=== PATIENT | female | born 1945 | race Caucasian/White ===

== ENCOUNTER → 2020-10-06 12:54 | Outpatient (BNVA) | payer MEDICARE, SELFPAY | PROVIDERS: PCP Internal Medicine; Visit Provider Hospitalist | DX: J45.909 Unspecified asthma, uncomplicated (principal); J98.4 Other disorders of lung; J31.0 Chronic rhinitis | CPT/HCPCS: 99212 ==

== ENCOUNTER → 2021-05-11 11:12 | Outpatient (BNVA) | payer MEDICARE, SELFPAY | PROVIDERS: PCP Internal Medicine; Visit Provider Hospitalist | DX: J98.4 Other disorders of lung (principal); J31.0 Chronic rhinitis; J45.40 Moderate persistent asthma, uncomplicated | CPT/HCPCS: 99212 ==

== ENCOUNTER 2022-03-03 13:01 | Outpatient (REF) | payer MEDICARE, SELFPAY ==
--- NOTE | 2022-03-03 16:34 | PFT_ITS ---
Forced vital capacity 78%, slightly decreased. FEV1 83%, FEV1/FVC ratio is 80, and FEF 25-75 96%, MVV 93%, all normal. Post-bronchodilator therapy, there is no significant change. Total lung capacity 69%. Residual volume is 57%. Diffusion capacity 77%. CONCLUSION: Mild restrictive pulmonary disorder. No evidence of obstructive airway disorder. Clinical correlation is recommended. MD CLARICE Daley/MODL / [id number]
== END 2022-03-03 13:02 | disposition home or self-care (01) ==
LOC: HO.RESP 13:01
PROVIDERS: PCP Internal Medicine; Visit Provider Hospitalist
DX: J98.4 Other disorders of lung (principal)
CPT/HCPCS: 94060; 94727; 94729

== ENCOUNTER 2022-03-08 10:46 | Outpatient (REF) | payer MEDICARE, SELFPAY ==
--- NOTE | ~2022-03-08 | XR_ITS ---
EXAMINATION: XR CHEST CLINICAL INFORMATION: Lung disorder. COMPARISON: 06/04/2020 TECHNIQUE: 2 views of the chest were obtained. FINDINGS: The cardiopericardial silhouette is enlarged. There is some bronchial wall thickening identified. There appears to be some mild prominence of the azygos vein. No confluent parenchymal disease is appreciated. No pneumothorax or pleural effusion. There is scoliosis of the superior thoracic spine, convex left. Patient is status post previous left shoulder arthroplasty. XR/XR chest 2V IMPRESSION: Cardiomegaly with findings consistent with pulmonary vascular congestion without clarice airspace edema.
== END 2022-03-08 10:47 | disposition home or self-care (01) ==
LOC: HO.XRAY 10:46
PROVIDERS: PCP Internal Medicine; Visit Provider Hospitalist
DX: J98.4 Other disorders of lung (principal); J31.0 Chronic rhinitis; J45.40 Moderate persistent asthma, uncomplicated
CPT/HCPCS: 71046; 99212

== ENCOUNTER → 2022-09-07 09:58 | Outpatient (BNVA) | payer MEDICARE, SELFPAY | PROVIDERS: PCP Internal Medicine; Visit Provider Hospitalist | DX: J45.40 Moderate persistent asthma, uncomplicated (principal); J31.0 Chronic rhinitis; J98.4 Other disorders of lung; I48.92 Unspecified atrial flutter | CPT/HCPCS: 99212 ==

== ENCOUNTER 2023-02-15 10:04 | Outpatient (REF) | payer MEDICARE, SELFPAY ==
--- NOTE | ~2023-02-15 | XR_ITS ---
EXAMINATION: XR CHEST CLINICAL INFORMATION: J45.40 - Moderate persistent asthma, uncomplicated COMPARISON: Chest radiographs 03/08/2022, 06/04/2020 TECHNIQUE: 2 views of the chest were obtained. FINDINGS: No hyperinflation. No airspace consolidation or groundglass opacity or effusion. The costophrenic sulci are clear. Heart size within normal. Vascularity normal. The hilar and mediastinal contours and bony structures are similar to prior exam. Prior left shoulder prosthesis. Multilevel degenerative changes thoracic spine. XR/XR chest 2V IMPRESSION: No acute intrathoracic disease.
== END 2023-02-15 10:05 | disposition home or self-care (01) ==
LOC: HO.XRAY 10:04
PROVIDERS: Visit Provider Hospitalist
DX: J45.40 Moderate persistent asthma, uncomplicated (principal); J31.0 Chronic rhinitis; J98.4 Other disorders of lung
CPT/HCPCS: 71046; 99212

== ENCOUNTER 2023-11-21 13:57 | Outpatient (REF) | payer MEDICARE, SELFPAY ==
--- NOTE | ~2023-11-21 | XR_ITS ---
EXAMINATION: XR HIP, LEFT CLINICAL INFORMATION: Left hip osteoarthritis. COMPARISON: None available. TECHNIQUE: AP and frog-leg lateral views of the left hip are submitted, together with frontal views of the pelvis. FINDINGS: There is bony demineralization. The bilateral acetabular joint spaces are symmetric and well-maintained. There is mild subchondral sclerosis and peripheral osteophyte formation of the acetabular roofs. The femoral heads are smooth. There is no fracture or dislocation. There are large calcified pelvic fibroids. There are pelvic phleboliths. There are incompletely characterized degenerative changes of the lumbar spine. XR/XR hip LT w PEL1V IMPRESSION: 1. There is mild osteoarthritic change of the bilateral hips. No fracture or dislocation is seen. 2. There are large calcified pelvic fibroids, which may be more fully evaluated with dedicated pelvic ultrasound, if clinically indicated.
== END 2023-11-21 13:58 | disposition home or self-care (01) ==
LOC: HO.XRAY 13:57
PROVIDERS: PCP Internal Medicine; Visit Provider Physical Medicine & Rehabilitation
DX: M16.12 Unilateral primary osteoarthritis, left hip (principal)
CPT/HCPCS: 73502

== ENCOUNTER 2023-11-26 00:11 | Emergency (ER) | payer MEDICARE, SELFPAY ==
--- NOTE | ~2023-11-26 | XR_ITS ---
EXAMINATION: XR HAND, RIGHT CLINICAL INFORMATION: Injury COMPARISON: None available. TECHNIQUE: PA, lateral, and oblique views of the right hand. FINDINGS: There is suboptimal assessment on the lateral view due to patient positioning and overlapping structures. There is severe degenerative change at the basal joint of the thumb and adjacent carpal bones with joint space narrowing and prominent osteophyte formation. There is also joint space narrowing throughout the metacarpophalangeal joints, most severe at the thumb with joint space narrowing and spurring. There are extensive degenerative changes at the interphalangeal joints of the digits with joint space narrowing and osteophyte formation. There is suspected soft tissue swelling along the ulnar aspect of the proximal fifth digit and around the MCP joint. There is questionable subtle cortical irregularity at the neck of the fifth metacarpal for which a nondisplaced fracture cannot be excluded if there is a history of trauma. XR/XR hand RT min 3V IMPRESSION: 1. Questionable subtle cortical irregularity at the neck of the fifth metacarpal for which a nondisplaced fracture cannot be excluded if there is a history of trauma. Adjacent soft tissue swelling suspected. 2. Extensive degenerative changes throughout the hand and wrist.
[2023-11-26 00:30] VITALS: BP 195/65; PULSE 80; RESP 18; TEMP 36.7; O2SAT 93; BMI 34.4
[2023-11-26 02:00] VITALS: RESP 16
--- NOTE | 2023-11-26 02:10 | ED_ITS ---
HPI - General Adult General Chief complaint: Wound/Laceration Stated complaint: fall @ home, R hand laceration Time Seen by Provider: 11/26/23 02:09 Source: patient and family (patient's ) Mode of arrival: ambulatory Limitations: no limitations History of Present Illness HPI narrative: Patient is a 78 year old assigned female at with a history of atrial flutter, on Xarelto, presenting to the emergency department today with a right hand laceration. Patient states that she was walking with a glass when she tripped and fell, hitting her right hand on the ground and smashed the glass, causing a laceration. Patient denies hitting her head or any loss of consciousness. Patient denies any dizziness, lightheadedness, abdominal pain, nausea, vomiting, fever, chills, blurry vision, double vision, loss of vision, chest pain, difficulty breathing, shortness of breath, back pain, night sweats, pain with urination, increased urinary frequency, increased urinary urgency, blood in her urine or stool, syncope or a near syncopal episode, bowel incontinence, bladder incontinence, bowel retention, bladder retention, or any other complaints at this time. Onset (ago): minute(s) Location: right and upper extremity Radiation: non-radiation Severity: mild Severity scale (1-10): 3 Relieving factors: none Exacerbating factors: none Associated symptoms: denies other symptoms Treatments prior to arrival: none Related Data Home Medications Medication Instructions Recorded Confirmed atenolol 50 mg tablet mg PO 10/06/20 10/06/20 atorvastatin 40 mg tablet mg PO 10/06/20 10/06/20 flu vacc [id number](65yr up)-PF 240 ml IM ONCE 10/06/20 10/06/20 mcg/0.7 mL intramuscular syringe hydrochlorothiazide 25 mg tablet 25 mg PO DAILY 10/06/20 10/06/20 losartan 100 mg tablet 100 mg PO DAILY 10/06/20 10/06/20 anastrozole 1 mg tablet 1 mg PO DAILY 05/11/21 fluticasone propionate 115 2 puff inhalation BID 05/11/21 mcg-salmeterol 21 mcg/actuation HFA inhaler rivaroxaban 20 mg tablet (Xarelto) 20 mg PO DAILY 03/08/22 Previous Rx's Medication Instructions Recorded albuterol sulfate 90 mcg/actuation 2 inh inhalation Q6H PRN shortness 02/15/23 aerosol inhaler of breath or wheezing 30 days #18 grams azithromycin 500 mg tablet 500 mg PO DAILY 5 days #5 tabs 02/15/23 methylprednisolone 4 mg tablets in See Rx Instructions PO PER PKG DIR 02/15/23 a dose pack (Medrol (Filemon)) 6 days #21 ea montelukast 10 mg tablet 10 mg PO DAILY #90 tabs 07/17/23 cefuroxime axetil 250 mg tablet 250 mg PO BID 7 days #14 tabs 11/26/23 Allergies Allergy/AdvReac Type Severity Reaction Status Date / Time acetaminophen [Percocet] Allergy Severe Nausea and Verified 02/15/23 11:29 Vomiting celecoxib [Celebrex] Allergy Severe Swollen Verified 02/15/23 11:29 doxycycline Allergy Severe Rash Verified 02/15/23 11:29 oxycodone [Percocet] Allergy Severe Nausea and Verified 02/15/23 11:29 Vomiting Clindamycin HCl Allergy Severe Face Uncoded 02/15/23 11:29 Swollen Sulfa Drugs Allergy Severe Face Uncoded 02/15/23 11:29 Swollen Review of Systems 2 Constitutional: Constitutional: Reports no additional constitutional complaints, Denies chills, Denies fever(s) and Denies night sweats Eyes: Eyes: Reports no additional eye complaints, Denies blurry vision, Denies change in vision, Denies diplopia, Denies eye discharge, Denies loss of vision and Denies eye pain ENT: Denies dizziness Cardiovascular: Cardiovascular: Reports no additional cardiovascular complaints, Denies chest pain, Denies lightheadedness, Denies Loss of Consciousness and Denies dyspnea Respiratory: Respiratory: Reports no additional respiratory complaints and Denies dyspnea Gastrointestinal: Gastrointestinal: Reports no additional gastrointestinal complaints, Denies abdominal pain, Denies melena, Denies hematochezia, Denies change in bowel habits and Denies change in stool character Genitourinary: Genitourinary: Denies hematuria, Denies urinary frequency, Denies dysuria, Denies urinary incontinence, Denies urinary hesitancy and Denies urinary urgency Musculoskeletal: Musculoskeletal: Reports no additional musculoskeletal complaints, Denies numbness and Denies tingling Integumentary/Breasts: Comments: laceration to right hand Neurologic: Denies dizziness, Denies loss of vision, Denies numbness and Denies tingling Psychiatric: Psychiatric: Reports no additional psychiatric complaints Endocrine: Endocrine: Reports no additional endocrine complaints Hematologic/Lymphatic: Hematologic/Lymphatic: Reports no additional hematologic/lymphatic complaints Allergic/Immunologic: Allergic/Immunologic: Reports no additional allergic/immunologic complaints PMFSH Past Medical History Attestation statement: The following information was validated with the patient. (all information validated with the patient's ) Source: old records reviewed, obtained from family (patient's provided additional history and confirmed the history provided by the patient.) and nursing notes reviewed Medical History Atrial flutter Chronic rhinitis Chronic restrictive lung disease Asthma Social History Social History Alcohol intake: current Alcohol intake frequency: holidays/special occasions only Smoked in Last 30 Days: No Use of substances other than those prescribed or required for medical reasons: No Advance Directives: No Advance Directives Information Provided: No Physical Exam ED Vital Signs: Vital Signs - 24 hr 11/26/23 00:30 11/26/23 02:00 11/26/23 04:00 Temperature 98.0 F Pulse Rate 80 71 Respiratory Rate 18 16 16 Blood Pressure 195/65 H 153/56 H Pulse Oximetry 93 98 Oxygen Delivery Method Room Air Room Air BMI result Body Mass Index 34.4 Const General: cooperative, no acute distress, alert and awake Nutritional Appearance: well nourished Orientation/consciousness: patient oriented x3 Limitations: no limitations [facility] Head: Yes normal to inspection and Yes atraumatic Ears: hearing grossly normal bilaterally and external ears normal General nose exam: Normal external nose present, no nasal discharge noted and no epistaxis Face and sinus: Yes normal facial exam, No abrasion and No laceration Mouth: Normal oral and palatal mucosa present, no drooling and no muffled voice Eyes General: appearance normal, both eyes and all related structures Periorbital: periorbital findings normal Eyelids: Yes eyelids normal Conjunctivae: conjunctivae normal Pupils: Equal, round and reactive pupils present EOM: EOMs intact bilaterally Neck Neck: Yes normal visual inspection, Yes full ROM and Yes no lymphadenopathy Chest Chest palpation & inspection: normal inspection of the chest Resp Effort & Inspection: normal respiratory effort and able to speak in complete sentences GI Inspection: Yes normal to inspection Neuro General: patient oriented x3 and moves all extremities Cranial nerves: Yes Equal, round and reactive pupils present Cognition (Neuro): normal cognition Motor exam (neuro): 5/5 motor strength present throughout Sensory Exam: Normal double simultaneous stimulation for sensation Coordination: [id number] test normal Extrem General: Yes full ROM and Yes capillary refill normal Hand/finger images: 2 1. 2 x 2 x 2 rectangular flap laceration Psych Appearance: grossly normal Mental Status: mental status grossly normal Affect: normal affect Attitude: cooperative Thought process: Normal thought process present Thought content: Normal thought content present Insight: Good insight present (Psych) Medications Administered Discontinued Medications Generic Name Dose Route Start Last Admin Trade Name Freq PRN Reason Stop Dose Admin Diphtheria/Tetanus/Acell Pertussis 0.5 ml 11/26/23 03:13 11/26/23 03:42 Diphth,Pertus(Acell),Tet Adult 0.5 Ml Syringe IM 11/26/23 03:14 0.5 ml .ONCE ONE Administration Piperacillin Sod/Tazobactam 50 mls @ 100 mls/hr 11/26/23 02:18 11/26/23 03:42 Sod 3.375 gm/ Sodium Chloride IV 11/26/23 02:47 Infused ONCE ONE Infusion Lidocaine HCl 10 ml 11/26/23 02:16 11/26/23 03:11 Lidocaine Hcl 1 % Mpf 5 Ml Vial SUBCUT 11/26/23 02:17 10 ml ONCE ONE Administration Procedures Laceration Laceration 1: Site: hand Side (If applicable): right Description: flap (2 x 2 x 2 rectangular shape) Depth: simple, single layer Local Anesthetic: lidocaine 1% Amount of anesthesia used (mL): 5 Pre-repair: wound explored, irrigated extensively and deep structures intact Skin layer closed with: other (prolene) Size (cm): 5-0 Number of sutures: 9 Technique: simple, interrupted Orthopedic Splinting/Casting Injury #1: Side: right Upper Extremity Injury Location: hand Upper Extremity Immobilizer: sling/shoulder immobilizer and ulnar gutter Medical Decision Making Medical Decision Making MDM Narrative: Patient is a 78 year old assigned female at with a history of atrial flutter, on Xarelto, presenting to the emergency department today with a right hand laceration. Patient's physical exam was as noted in the physical exam portion of this note. Patient's blood work was unremarkable. Patient's right hand x-ray showed a possible right 5th metacarpal neck fracture. Given the patient's mechanism of injury, will treat as though it is a fracture. I spoke to the orthopedic team who agreed with repairing the laceration, splinting the hand, giving 1 dose of IV ABX, and having her follow up in the office. I explained my physical exam findings as well as all test results to the patient and the patient's . I answered all questions asked by the patient and the patient's . Patient's laceration was repaired, per procedure note, without incident. Patient's PMS was intact prior to and after repair. Patient's laceration was appropriately dressed and then an ulnar gutter splint was applied. Patient's PMS was intact prior to and after splint placement. Patient was given a sling to use while walking / standing. I stressed the importance of the patient taking her medication as prescribed. I stressed the importance of the patient following up with her primary care provider and an orthopedic provider. I stressed to the patient that if she were to have any numbness, tingling, or color change in her fingers to immediately loosen the YENNY wrap on her splint and if she found herself loosening all the YENNY wraps to the point where she sees ortho-glass, she should immediately return to the ER. I stressed the importance of the patient having the sutures removed in 7-10 days. I stressed the importance of the patient not getting the splint wet. I stressed the importance of the patient taking her ABX as prescribed. I stressed the importance of the patient returning to the emergency department immediately if her symptoms were to worsen or if she were to develop any dizziness, shortness of breath, difficulty breathing, chest pain, blurry vision, loss of vision, nausea, vomiting, abdominal pain, fever, chills, back pain, or any other complaints. Patient and the patient's verbalized agreement and understanding with this treatment plan and discharge. Differential Diagnosis Differential Diagnoses: The differential diagnosis associated with the presentation includes Hand laceration Hand fracture Fall Admission/Observation Consideration of admission/observation: Escalation of care including admission/observation considered Patient would have been admitted to the hospital had her work up had any findings where hospital admission was appropriate and her clinical presentation warranted hospital admission. Consult Healthcare Provider Management of the patient was discussed with: Facility Maintenance Helper (spoke with the orthopedic team as noted in the MDM Rationale portion of this note.) Lab Data [facility] Lab Attestation statement: I reviewed the patient's lab results. My interpretation of these results are in the MDM Rationale portion of this note. 11/26/23 03:04 11/26/23 03:04 Labs: Lab Results 11/26/23 Range/Units 03:04 WBC 7.9 (4.8-10.8) X10*3/uL RBC 4.30 (4.20-5.50) X10*6/uL Hgb 13.3 (12.0-16.0) g/dl Hct 40.5 (37.0-47.0) % MCV 94.2 (80.0-98.0) fL MCH 30.9 (27.0-33.0) pg MCHC 32.8 (31.0-35.0) g/dl RDW 12.7 (11.0-16.0) % Plt Count 221 (160-400) X10*3/uL MPV 9.6 (9.4-12.3) fL Immature Gran % (Auto) 0.3 (0.0-0.4) % Neut % (Auto) 62.9 (45-73) % Lymph % (Auto) 25.3 (20-40) % Pickett % (Auto) 8.6 (2-11) % Eos % (Auto) 2.1 (0-4) % Baso % (Auto) 0.8 (0-2) % Lymph # (Auto) 2.0 (1.2-4.9) X10*3/uL Pickett # (Auto) 0.7 (0.1-1.2) X10*3/uL Eos # (Auto) 0.2 (0.0-0.4) X10*3/uL Baso # (Auto) 0.1 (0.0-0.2) X10*3/uL Abs Immat Gran (auto) 0.02 (0.00-0.03) X10*3/uL Absolute Neuts (auto) 5.0 (2.0-8.3) x10*3/uL Absolute Nucleated RBC 0.000 (0.0-0.012) X10*3/uL Nucleated RBC % (auto) 0.0 (0.0-0.2) /100WBC PT 23.6 H (11.1-13.3) SEC INR 1.9 H (0.9-1.1) APTT 45.1 H (26.0-36.8) SEC Sodium 144 (135-145) mmol/L Potassium 4.0 (3.3-5.1) mmol/L Chloride 105 (96-108) mmol/L Carbon Dioxide 32 H (22-29) mmol/L Anion Gap 11 L (12-20) BUN 16 (9-16) mg/dL Creatinine 0.81 (0.5-1.4) mg/dL Estim Creat Clear Calc 56.7 Estimated GFR > 60 Random Glucose 97 (60-115) mg/dL Lactic Acid 1.1 (0.5-2.0) mmol/L Calcium 9.7 (8.4-10.2) mg/dL Magnesium 1.8 (1.6-2.6) mg/dL Total Bilirubin 0.3 (0.0-1.0) mg/dL AST 17 (5-31) U/L ALT 16 (0-31) U/L Alkaline Phosphatase 73 (39-117) U/L Total Protein 7.1 (6.5-8.0) g/dL Albumin 4.0 (3.5-5.0) g/dL Independent Interpretation I performed an independent interpretation of an: Plain X-Ray Interpretation: My interpretation is in agreement with the radiologist's impression of this imaging study. - EXAMINATION: XR HAND, RIGHT CLINICAL INFORMATION: Injury COMPARISON: None available. TECHNIQUE: PA, lateral, and oblique views of the right hand. FINDINGS: There is suboptimal assessment on the lateral view due to patient positioning and overlapping structures. There is severe degenerative change at the basal joint of the thumb and adjacent carpal bones with joint space narrowing and prominent osteophyte formation. There is also joint space narrowing throughout the metacarpophalangeal joints, most severe at the thumb with joint space narrowing and spurring. There are extensive degenerative changes at the interphalangeal joints of the digits with joint space narrowing and osteophyte formation. There is suspected soft tissue swelling along the ulnar aspect of the proximal fifth digit and around the MCP joint. There is questionable subtle cortical irregularity at the neck of the fifth metacarpal for which a nondisplaced fracture cannot be excluded if there is a history of trauma. XR/XR hand RT min 3V IMPRESSION: 1. Questionable subtle cortical irregularity at the neck of the fifth metacarpal for which a nondisplaced fracture cannot be excluded if there is a history of trauma. Adjacent soft tissue swelling suspected. 2. Extensive degenerative changes throughout the hand and wrist. Dictated By: Kyle Crisostomo MD Signed By: Electronically signed by Kyle Crisostomo MD 11/26/23 0135 Radiology Impression Discussion of test interpretation with radiology: I have reviewed the radiologist's reading. Independent Historian Clinical information obtained from an independent historian. History obtained from or confirmed by: Spouse (patient's provided additional history and confirmed the history provided by the patient.) Prescription Management I considered prescription management with: Antibiotic (patient prescribed an antibiotic) Critical Care Time Critical Care Time Critical Care Time: Yes Total Critical Care Time: 55 Attestation: I spent 55 minutes of Critical Care Time with this patient. This does not include time spent on separately reported billable procedures. Discharge Plan Discharge Clinical Impression: Hand laceration, Fracture of hand Patient Disposition: Home, Self-Care Instructions: Care For Your Stitches (DC), Laceration (DC), Hand Fracture (ED) Additional Instructions: Your sutures are to be removed in 7-10 days. You are to keep your splint on at all times. If you feel your fingers begin to tingle, go numb, or change color - immediately loosen the YENNY wraps around your splint. If you find yourself loosening your YENNY wraps to the point where you get down to the fiber glass, come back to the ER immediately. Do NOT get the splint wet. Follow up with your primary care provider and an orthopedic provider. Take your antibiotic as prescribed. Return to the emergency department immediately if your symptoms worsen or if you develop any dizziness, shortness of breath, difficulty breathing, chest pain, blurry vision, loss of vision, nausea, vomiting, abdominal pain, fever, chills, back pain, or any other complaints. Prescriptions: New cefuroxime axetil 250 mg tablet 250 mg PO BID 7 Days Qty: 14 0RF No Action montelukast 10 mg tablet 10 mg PO DAILY Qty: 90 3RF atenolol 50 mg tablet PO losartan 100 mg tablet 100 mg PO DAILY hydrochlorothiazide 25 mg tablet 25 mg PO DAILY atorvastatin 40 mg tablet PO Fluzone HighDose Quad 20-21 PF 240 mcg/0.7 mL syringe IM ONCE fluticasone propion-salmeterol 115-21 mcg/actuation HFA aerosol inhaler 2 puff inhalation BID anastrozole 1 mg tablet 1 mg PO DAILY azithromycin 500 mg tablet 500 mg PO DAILY 5 Days Qty: 5 0RF methylprednisolone [Medrol (Filemon)] 4 mg tablets,dose pack See Rx Instructions PO PER PKG DIR 6 Days Qty: 21 0RF Rx Instructions: PO PER PKG DIR albuterol sulfate 90 mcg/actuation HFA aerosol inhaler 2 inh inhalation Q6H PRN (Reason: shortness of breath or wheezing) 30 Days Qty: 18 12RF Xarelto 20 mg tablet 20 mg PO DAILY Referrals: [facility] [Provider Group] (Call to establish and follow up with an orthopedic provider. ) Murphy Ramirez MD [Primary Care Provider] - Interventions: ED Discharge Assessment Last Done: 11/26/23 03:56 Discharge Date/Time: 11/26/23 03:56 Print Language: [place]
[2023-11-26] MEDS: Piperacillin Sodium/Tazobactam 3.375 GM in 0.9 % Sodium Chloride 50 ML IV (03:10)
[2023-11-26] MEDS: Lidocaine HCl 1 % MPF 5 ML VIAL 10 ML SUBCUT (03:11)
[2023-11-26 03:12] LABS: MANUAL DIFF FLAG NO
[2023-11-26 03:13] LABS: Basophils Absolute Auto 0.1 X10*3/uL (0.0-0.2); Basophils Percent Auto 0.8 % (0-2); Eosinophils Absolute Auto 0.2 X10*3/uL (0.0-0.4); Eosinophils Percent Auto 2.1 % (0-4); Hematocrit 40.5 % (37.0-47.0); Hemoglobin 13.3 g/dl (12.0-16.0); Imm Gran Abs Auto 0.02 X10*3/uL (0.00-0.03); Imm Gran Pct Auto 0.3 % (0.0-0.4); Lymphocytes Percent Auto 25.3 % (20-40); Mean Corpuscular HGB Conc 32.8 g/dl (31.0-35.0); Mean Corpuscular Hemoglobin 30.9 pg (27.0-33.0); Mean Corpuscular Volume 94.2 fL (80.0-98.0); Mean Platelet Volume 9.6 fL (9.4-12.3); Monocytes Absolute Auto 0.7 X10*3/uL (0.1-1.2); Monocytes Percent Auto 8.6 % (2-11); Neutrophils Percent Auto 62.9 % (45-73); Platelet Count 221 X10*3/uL (160-400); Red Cell Distribution Width 12.7 % (11.0-16.0); White Blood Count 7.9 X10*3/uL (4.8-10.8)
[2023-11-26 03:20] LABS: INTERNATIONAL NORM RATIO 1.9 (0.9-1.1); Prothrombin Time 23.6 SEC (11.1-13.3)
[2023-11-26 03:22] LABS: Partial Thromboplastin Time 45.1 SEC (26.0-36.8)
[2023-11-26 03:23] LABS: Lactic Acid 1.1 mmol/L (0.5-2.0)
[2023-11-26 03:26] LABS: Alanine Aminotransferase 16 U/L (0-31); Alkaline Phosphatase 73 U/L (39-117); Anion Gap 11 (12-20); Aspartate Amino Transferase 17 U/L (5-31); Bilirubin Total 0.3 mg/dL (0.0-1.0); Blood Urea Nitrogen 16 mg/dL (9-16); Calcium 9.7 mg/dL (8.4-10.2); Carbon Dioxide 32 mmol/L (22-29); Chloride 105 mmol/L (96-108); Creatinine Clr Calc Pharmacy 56.7; Estimated Glomerular Filt Rate > 60; Glucose Random 97 mg/dL (60-115); Magnesium 1.8 mg/dL (1.6-2.6); Sodium 144 mmol/L (135-145); Total Protein 7.1 g/dL (6.5-8.0)
[2023-11-26] MEDS: Diphth,Pertus(ACell),Tet Adult 0.5 ML SYRINGE IM (03:42)
[2023-11-26 04:00] VITALS: BP 153/56; PULSE 71; RESP 16; O2SAT 98
== END 2023-11-26 03:56 | disposition home or self-care (01) ==
PROVIDERS: Physician Assistant Medical; Emergency Provider Emergency Medicine Emergency Medical Services; PCP Internal Medicine
DX: S62.91XA Unspecified fracture of right hand, initial encounter for closed fracture (principal); S61.411A Laceration without foreign body of right hand, initial encounter; S60.511A Abrasion of right hand, initial encounter; I48.92 Unspecified atrial flutter; W01.10XA Fall on same level from slipping, tripping and stumbling with subsequent striking against unspecified object, initial encounter; Y93.9 Activity, unspecified; Y92.9 Unspecified place or not applicable; Y99.9 Unspecified external cause status; Z79.01 Long term (current) use of anticoagulants; Z79.899 Other long term (current) drug therapy; Z23 Encounter for immunization
CPT/HCPCS: 12042; 29125; 36415; 73130; 80053; 83605; 83735; 85025; 85610; 85730; 87040; 90471; 90715; 96365; 99284; J2543

== ENCOUNTER 2024-08-27 10:29 | Outpatient (AMB) | payer MEDICARE, SELFPAY ==
--- NOTE | 2024-08-27 10:32 | A.OFFVIS_ITS ---
Vital Signs 08/27/24 10:38 Weight 178 lb 9.191 oz BP 136/80 Blood Pressure Location Rt brachial Position Sitting Pulse 81 Pulse Source Pulse Oximeter Pulse Oximetry (%) 95 Oxygen Delivery Method Room Air Intake Visit Reasons: COPD Intake Note: needs 30 day supply [facility]air to local [facility] Allergies acetaminophen [Percocet] Allergy (Severe, Verified 08/27/24 10:44) Nausea and Vomiting celecoxib [Celebrex] Allergy (Severe, Verified 08/27/24 10:44) Swollen doxycycline Allergy (Severe, Verified 08/27/24 10:44) Rash oxycodone [Percocet] Allergy (Severe, Verified 08/27/24 10:44) Nausea and Vomiting Clindamycin HCl Allergy (Severe, Uncoded 08/27/24 10:44) Face Swollen Sulfa Drugs Allergy (Severe, Uncoded 08/27/24 10:44) Face Swollen Medication List - Last Reconciled 08/27/24 by Aby Orantes LPN albuterol sulfate 90 mcg/actuation 2 inhalations inhalation Q6H PRN 30 days anastrozole 1 mg PO DAILY atenolol mg PO atorvastatin mg PO flu vacc [id number](65yr up)-PF mL IM ONCE fluticasone propion-salmeterol 115-21 mcg/actuation 2 puffs inhalation BID hydrochlorothiazide 25 mg PO DAILY losartan 100 mg PO DAILY montelukast 10 mg PO DAILY rivaroxaban (Xarelto) 20 mg PO DAILY HPI Comments Details: The patient is a 79-year-old woman with known allergic rhinitis and also allergic asthma. 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 More recently her allergies became more significant and with recent allergy testing she was switched over to allergy shots once a week. She has not been also using Zyrtec at nighttime. In regards to her asthma she appears to be pretty stable currently on Flovent. Prior to that she was on Breo. She does not use her rescue inhaler more than twice a week. She does clear her throat a lot moderate in amount with a number awake cough syndrome. The patient has never tried singular. I do believe this is a good option for her to try to try to mitigate some of the allergy symptoms. 06/04/2020 the patient is here for pulmonary follow-up visit. Overall she is doing about the same. She complains of intermittent hoarseness. She had a spacer has been helpful. She is down to 1 puff twice a day of the Advair HFA. She has not had to really use her rescue inhaler. At this time she will be going back to allergy shots. She is also taking her allergy medicine. Therefore I believe that she can go down to the Advair HFA 1 puff daily see if we can minim ize irritation to her throat. In the fall when her symptoms get worse the patient can be started the twice a day Advair. She should be rinsing with mouthwash better than water. In addition to that we did talk about her pulmonary function studies demonstrating a restrictive ventilatory defect. Therefore she should have a chest x-ray at this time. 10/06/2020 the patient is here for pulmonary follow-up visit. The patient is doing well. She did decrease the inhaler. Down to 1 puff daily in the morning. Her hoarseness did get better she overall she was doing well. However, Monday winter season started she started developing more chest tightness and shortness of breath. She did increase her Advair to 1 inhalation twice a day in now she used to be better. She continue using her allergy medicine. We again talked about her chest x-ray that she had back in some demonstrating some decreased lung volumes in with appears to be crowding of the parenchyma and vasculature. In addition to that we will see did look at her CT scan of the chest that she had many years ago she was intubated pneumonia. She had to be areas of ground-glass opacities in a bronchovascular distribution. 05/11/2021 the patient is here for pulmonary follow-up visit. Since we last spoke the patient has been complaining palpitations. Apparently she to take a course of prednisone due to worsening respiratory symptoms. Then after that the patient started the developing some increased ectopy. She was evaluated by physician noted that heart was irregular. Therefore she was sent for an evaluation [facility]. There she had an EKG with frequent PVCs. In addition to that she had an echocardiogram which was relatively normal except for some trivial tricuspid regurgitation during that workup the patient also a chest x- ray that was personally reviewed by me demonstrating a pronounced hilum otherwise no acute disease. She has PFTs demonstrating restrictive ventilatory defect. Explained to her that this is likely multifactorial. The patient has been doing well with the Advair. She has not required any additional prednisone and has not been using rescue inhaler before she is continue this medication 1 puff twice a day. The patient also had a Holter monitor and she does not have the results. She will follow-up cardiology once it is available for the patient will return in the spring in hoping that she could in the meantime working weight loss therefore we can repeat her pulmonary function studies and see if there is any significant improvement if she continues to be resected or if she to be symptomatic additional imaging studies will be warranted. Also to note the patient started developing left ear discomfort after her echocardiogram and main on her left ear down. She did follow-up with ENT. The recommended for to start a Medrol pack. She will consider starting it if she is no better. In the meantime I did recommend to try Afrin for 3-5 days to see if it improves prior to the Medrol. 03/08/2022 the patient is here for a pulmonary follow-up visit. Since we last spoke the patient was diagnosed with a atrial flutter. She did undergo cardioversion but was unsuccessful. She is following closely with Cardiology apparently value Cardiology. Now she has been referred to electrophysiology for potential ablation. She continues to have dyspnea on exertion. We did undergo repeat pulmonary function studies. Appears that her total lung capacity continues to be decreased consistent with restrictive lung disease. Her previous x-ray was not significant. I have her repeat an x-ray. If the x-ray is abnormal she is going to require additional imaging studies. If she continues to have dyspnea symptoms after her ablation or EP procedure then we can also consider additional diagnostic evaluation to further assess the restrictive lung disease that may also be contributing to her dyspnea symptoms. She continues on the Advair. It appears that is affecting beneficial. Is on likely precipitating any cardiac issues based on the small dose. 09/07/2022 the patient is here for a pulmonary follow-up visit. The patient overall has been feeling about the same. Complains of dyspnea on exertion. Moderate severity. Specially when going up a flight of stairs. We did review her last chest x-ray that she had in the office back in February demonstrating increased cardiac size with perihilar congestion cephalization suggesting some vascular distribution. She was supposed to undergo an ablation for her atrial fibrillation atrial flutter. However, the procedure has not been done as of yet. After much back in for the patient finally got a day for the ablation to be done in mid September. Therefore, will go ahead and have her follow-up with us in early spring with a chest x-ray after she recovers from her ablation see if any of those changes are still present. If her chest x-ray still abnormal then will consider getting a CT scan. Otherwise she will continue with current respiratory regimen. 02/15/2023 the patient is here for pulmonary follow-up visit. The patient overall is doing well. Now that the spring season is coming in she is having more allergies. She does good allergy therapies with her technical program manager locally. She gets allergy shots every 3 weeks and now we going for every 2 weeks. Recently she completed a Medrol pack and also completed a Z-Filemon. She also underwent an ablation for atrial flutter and appears to be working well. She was supposed to have a chest x-ray today but she has not had 1 as of yet. Her last chest x-ray from February 2022 that she had some vascular congestion. I am hopeful that now after the ablation or the procedure that she is doing better. The patient has been using her Advair with good effect. I will go ahead and give her additional medicines for her to take on her trip to [place]. She does have still a sore throat and some lymphadenopathy that is tender around the neck area. She has multiple allergies. Therefore I will give another Z-Filemon and Medrol in case she gets worse again. In the meantime the patient will continue with current respiratory medications will follow-up in the spring on as any new issues arise. When she has a chest x-ray done if there is any abnormalities I will request additional imaging studies. 08/27/2024 the patient is here for a pulmonary follow-up visit. The patient overall has been doing well. Several months ago the patient did have an episode of sinusitis again before going on a cruise and she did require a short course of azithromycin and a Medrol Filemon and that improved her symptoms after a week. She was able to enjoy her cruise. She is back to her baseline. Although she does have significant allergies and she needs to stay on the Singulair that does help her. She is also taking Advair HFA but she tries to minimize it 1 puff twice a day which is perfectly fine. She can always increase it if she has any worsening symptoms. When she came in today her blood pressure was elevated but most likely because she was rushing. We did recheck it again was okay. In addition to that her oxygen had been slightly on the low side so will have her get a chest x-ray. Her respiratory exam is reassuring. She does have a postnasal drip and will go ahead and treated with Atrovent nasal spray for that. She does not have any history of glaucoma. Therefore, she will have a chest x-ray whenever possible and she will continue with current respiratory therapy and will send the prescriptions to the pharmacy. The patient will follow-up in a year's time. If she has any issues prior to that she will call for an earlier assessment. REPLACED BY [facility] Medical History Atrial flutter Chronic rhinitis Chronic restrictive lung disease Asthma Social History Alcohol intake: current Alcohol intake frequency: holidays/special occasions only Review of Systems Const Denies night sweats ENT Denies change in voice, Denies lip swelling, Denies mouth pain, Reports nasal congestion, Reports nasal discharge, Reports post nasal drip and Denies tongue swelling Card Denies chest pain and Reports dyspnea on exertion Resp Denies chest congestion, Reports cough and Reports dyspnea on exertion GI Denies abdominal pain Musc Denies no additional complaints Neuro Denies Neuro-related abnormal movements Psych Denies no additional complaints Bossman/Lymph Denies easy bleeding and Denies lymphadenopathy Aller/Immun Denies lip swelling and Denies tongue swelling Physical Exam Vital Signs: Last Vital Signs Pulse 81 08/27/24 10:38 BP 136/80 08/27/24 10:38 Pulse Ox 95 08/27/24 10:38 Oxygen Delivery Method Room Air 08/27/24 10:38 Const General: alert Neck Neck: Yes normal visual inspection, Yes full ROM and Yes no lymphadenopathy Chest Chest palpation & inspection: normal inspection of the chest Resp Auscultation: diminished lung sounds Cardio Rate: tachycardic Rhythm: abnormal rhythm Heart sounds: S1 normal heart sound present and S2 normal heart sound present GI Palpation (GI): Soft to palpation and nontender Auscultation: normal bowel sounds Skin General skin exam: rashes and/or lesions noted Assessment & Plan Assessment & Plan (1) Chronic rhinitis: Code(s): J31.0 - Chronic rhinitis Category: Medical (2) Chronic restrictive lung disease: Comment: Based on PFTs Code(s): J98.4 - Other disorders of lung Category: Medical (3) Asthma: Code(s): J45.909 - Unspecified asthma, uncomplicated Category: Medical Qualifiers: Asthma complication type: uncomplicated Asthma persistence: persistent Asthma severity: moderate Qualified Code(s): J45.40 - Moderate persistent asthma, uncomplicated Plan continue fluticasone nasal spray atrovent nasal spray as needed continue Advair HFA continue singulair THOM as needed continue with allergy testing Repeat CXR F/U 8-12 months Orders: Orders XR chest 2V Today J98.4 - Other disorders of lung Medications: New ipratropium bromide administer into each nostril 2 sprays intranasal TID PRN 15 mL 6RF allergy symptoms Changed From montelukast 10 mg PO DAILY 30 tabs 0RF To montelukast 10 mg PO DAILY 90 tabs 3RF 90 days Refilled montelukast 10 mg PO DAILY 30 tabs 0RF Coding Level of Care Code Est Pt Level 4 (89131) Diagnoses Chronic rhinitis J31.0 Chronic restrictive lung disease J98.4 Moderate persistent asthma without complication J45.40 Asthma complication type: uncomplicated Asthma persistence: persistent Asthma severity: moderate Time Spent (min) 16
[2024-08-27 10:38] VITALS: BP 136/80; PULSE 81; O2SAT 95
== END 2024-08-27 11:07 | disposition home or self-care (01) ==
LOC: HO.HPS 10:29
PROVIDERS: PCP Internal Medicine; Visit Provider Hospitalist
DX: J31.0 Chronic rhinitis (principal); J98.4 Other disorders of lung; J45.40 Moderate persistent asthma, uncomplicated
CPT/HCPCS: 99214

== ENCOUNTER → 2024-08-27 10:29 | Outpatient (BNVA) | payer MEDICARE, SELFPAY | PROVIDERS: PCP Internal Medicine; Visit Provider Hospitalist | DX: J45.40 Moderate persistent asthma, uncomplicated (principal); J31.0 Chronic rhinitis; J98.4 Other disorders of lung | CPT/HCPCS: 99212 ==

== ENCOUNTER 2025-06-09 14:28 | Outpatient (AMB) | payer MEDICARE, SELFPAY ==
--- OUTSIDE RECORDS SUMMARY | 2025-06-09 15:11 | XMS_ITS | Clinical Summary ---
Author Organization [address] [place] [address] Address [address] [place] [address] Phone Care Team Providers Care Heel Dipper Name Role Phone Murphy Ramirez MD Primary Care Provider [phone] Allergies Active Allergy Reactions Criticality Noted Date Comments Celecoxib Angioedema High 01/06/2017 Clindamycin Angioedema High 01/06/2017 Doxycycline Angioedema High 01/06/2017 Other 02/23/2022 Runny nose, cough, allergic asthma Oxycodone-Acetaminophen Nausea And Vomiting Penicillins Rash 06/02/2021 Sulfa (Sulfonamide Antibiotics) Angioedema High 01/06/2017 Medications biotin 1 mg capsule Take 1 tablet by mouth 1 (one) time each day. Active fluticasone propion-salmeter oL (ADVAIR DISKUS) 100-50 mcg/dose diskus inhaler Inhale 1 puff by mouth every 12 (twelve) hours. Active losartan (COZAAR) 100 mg tablet Take 1 tablet (100 mg total) by mouth 1 (one) time each day. Active hydroCHLOROthiaz elaine (HYDRODIURIL) 25 mg tablet Take 1 tablet (25 mg total) by mouth 1 (one) time each day. Active calcium carbonate/vitami n D3 (CALCIUM + D ORAL) Take by mouth. 400mg Active ascorbic acid, vitamin C, 500 mg capsule Take by mouth. Acti ve anastrozole (ARIMIDEX) 1 mg Take 1 tablet (1 mg total) by mouth 1 (one) time each day Active magnesium oxide 500 mg magnesium tablet Take 1 tablet by mouth 1 (one) time each day. Active montelukast (SINGULAIR) 10 mg tablet Take 1 tablet (10 mg total) by mouth at bedtime. Active triamcinolone acetonide (NASACORT NASL) by Nasal route. Active atenoloL (TENORMIN) 50 mg tablet Take 1.5 tablets (75 mg total) by mouth 2 (two) times a day. Active atorvastatin (LIPITOR) 40 mg tablet Take 1 tablet (40 mg total) by mouth at bedtime. Active multivitamin/iro n/folic acid (CENTRUM ORAL) Take 1 tablet by mouth. Active omega-3 acid ethyl esters (LOVAZA) 1 gram capsule Take 1 capsule.old by mouth daily. Active omeprazole (PriLOSEC) [address] capsule Take 1 capsule (20 mg total) by mouth 1 (one) time each day. Active albuterol HFA (PROAIR HFA ; PROVENTIL HFA ; VENTOLIN HFA) 90 mcg/actuation inhaler Inhale 2 puffs by mouth every 4 (four) hours if needed. Active cetirizine (ZyrTEC) 10 mg tablet Take 1 tablet (10 mg total) by mouth 1 (one) time each day. Active amoxicillin (AMOXIL) 500 mg capsule Take 4 capsules (2,000 mg total) by mouth See administration instructions. 1 hour prior to dental appointment 05/21/20 24 Active ipratropium (ATROVENT) 42 mcg (0.06 %) nasal spray Administer 1 spray into each nostril 3 (three) times a day. 08/27/20 24 Active rivaroxaban (XARELTO) 20 mg tabletIndication s:Atrial flutter, unspecified type (CMS/HCC V24, CMS/HCC V28),Mild asthma, unspecified whether complicated, unspecified whether persistent,Brittney ture atrial contractions,Mix ed hyperlipidemia,P rimary hypertension Take 1 tablet (20 mg total) by mouth 1 (one) time each day. With meals 90 tablet 2 01/03/20 25 Active Active Problems Problem Noted Date Diagnosed Date Mild persistent asthma 12/29/2022 Atrial flutter (CMS/HCC V24, CMS/HCC V28) 2020 Overview (10/28/2024): Last Assessment & Plan: In atrial flutter, heart rate is on the high end of normal on BB, anticoagulated on Xarelto since October, she has not missed a single dose. We will go forth with a cardioversion. We reviewed this in depth and Dr. Riddle and also reviewed this at her last office visit. We will try cardioversion, we also reviewed other treatment options are rate control, antiarrhythmic therapy, or ablation. She understands risk and benefits of anticoagulation and wished to continue. Premature atrial contractions 06/03/2021 PVC's (premature ventricular contractions) 06/02 Hyperlipidemia 08/26/2017 Overview (10/28/2024): Last Assessment & Plan: Continue statin. Primary hypertension 08/26/2017 Overview (10/28/2024): Last Assessment & Plan: 134/88, she tells me she has been under some increased stress over the past week, her had a stent placed last week, and just received some bad news on her way here. Continue current regimen. Asthma 03/08/2017 Allergic rhinitis 01/06/2017 Encounters Date Type Department Care Team Description 03/28/2025 Telephone [facility] - [address] [place] [address] Mile Chow PA atenoloL (TENORMIN) 50 mg tablet refill (atenoloL (TENORMIN) 50 mg tablet refill) from Last 3 Months Surgical History Surgery Date Site/Laterality Comments TOTAL KNEE ARTHROPLASTY PROCEDURE: HISTORICAL TOTAL KNEE REPLACE OTHER SURGICAL HISTORY PROCEDURE: HISTORY OTHER; COMMENT: Hammer toe operation CARDIOVERSION DONE ON 01/13/2025 AT [facility] W CR INDICATIONS:Atrial flutter ABLATION DONE ON 01/27/2025 AT [facility] W SR INDICATIONS:Atrial flutter. Medical History Medical History Date Comments Hypertension 08/26/2017 DX:Hypertension Hyperlipidemia 08/26/2017 DX:Hyperlipidemi a Total knee replacement status 08/26/2017 DX :Total knee replacement status Atypical lobular hyperplasia of left breast 09/2017 DX:Atypical lobular hyperpla ever of left breast Chronic restrictive lung disease DX:Chronic restrictive lung disease Generalized osteoarthritis DX:Ge neralized osteoarthritis Metabolic syndrome X DX:Metaboli c syndrome X Obesity DX:Obesity Post-operative pain DX:Post-oper ative pain Allergic asthma without complication DX:Allergic asthma without complication Allergic rhinitis DX:Allergic rh initis Extrinsic allergic asthma DX:Ext rinsic allergic asthma Family History Medical History Relation Name Comments Lung cancer Father Stroke Mother Relation Name Status Comments Father Mother Social History Tobacco Use Types Packs/Day Years Used Date Smoking Tobacco: Never Smokeless Tobacco: Never Tobacco Cessation:Counseling Given: Not Answered Alcohol Use Standard Drinks/Week Comments Yes 0 (1 standard drink = 0.6 oz pur e alcohol) Comments Unknown Sex and Gender Information Value Date Recorded Sex Assigned at Female 01/10/2025 8:24 AM EDT Legal Sex Female 5:14 AM EST Gender Identity Female 01/10/2025 8:24 AM EDT Sexual Orientation Straight 01/10/2025 8: 24 AM EDT Obstetrics History Last Filed Vital Signs Vital Sign Reading Time Taken Comments Blood Pressure 130/60 02/19/2025 2:15 PM EDT Pulse 85 02/19/2025 2:15 PM EDT Temperature - - Respiratory Rate 17 01/13/2025 2:15 PM EDT Oxygen Saturation 95% 02/19/2025 2:15 PM EDT Inhaled Oxygen Concentration - - Weight 80.7 kg (178 lb) 02/19/2025 2:15 PM EDT Height 154.9 cm (5' 1 ) 02/19/2025 2:15 PM EDT Body Mass Index 33.63 02/19/2025 2:15 PM EDT Plan of Treatment Upcoming Encounters Date Type Department Care Team (Late st Contact Info) Description 06/12/2025 9:40 AM EDT Office Visit [facility] - [facility] [address] [place] [address] Mile Chow PA [address] [place] [address] Health Maintenance Due Date Last Done Comments Zoster Vaccines (2 of 2) 12/18/2013 014, 09/17/2011, 09/07/2011, Additional history exists Cholesterol Screening (Lipid Panel) 10/01/2022 Falls Risk Assessment 10/01/2022 Hepatitis C Screening 10/01/2022 Hypertension/CHF/CAD Annual BMP Blood Test 10/01/2022 Medicare Annual Wellness Visit 10/01/2022 Osteoporosis Screening (Bone Density Screening) 10/01/2022 Social Influencers of Health Screening 10/01/2022 Depression Screening 10/23/2024 COVID-19 Vaccine (8 - Pfizer risk season) 2025 07/05/2024, 08/11/2023, 07/11/2022, Additional history exists Influenza Vaccine (#1) 2025 , 07/07/2023, 07/11/2022, Additional history exists DTaP,Tdap,and Td Vaccines (4 - Td or Tdap) 11/26/2033 11/26/2023, 07/09/2016, 10/07/2011 Pneumococcal Vaccine: 50+ Years Completed 11/25/2021, 05/08/2015, 10/07/2011, Additional history exists RSV Immunization Adult Patients Completed 07/07/2023 HIB Vaccines Aged Out No longer eligi ble based on patient's age to complete this topic HPV Vaccines Aged Out No longer eligi ble based on patient's age to complete this topic Hepatitis A Vaccines Aged Out No long er eligible based on patient's age to complete this topic Hepatitis B Vaccines Aged Out No long er eligible based on patient's age to complete this topic IPV Vaccines Aged Out No longer eligi ble based on patient's age to complete this topic MMR Vaccines Aged Out No longer eligi ble based on patient's age to complete this topic Meningococcal ACWY Vaccine Aged Out N o longer eligible based on patient's age to complete this topic Meningococcal B Vaccine Aged Out No l onger eligible based on patient's age to complete this topic RSV Immunization Patients Under 20 months Aged Out No longer eligible based on patient's age to complete this topic Varicella Vaccines Aged Out No longer eligible based on patient's age to complete this topic Insurance MEDICARE [facility] Care Teams Heel Dipper Relationship Specialty Start Date End Date Murphy Ramirez MD [address] [email or web address] - General Internal Medicine 04/27/21
== END 2025-06-09 14:34 | disposition home or self-care (01) ==
LOC: HO.HMGAL 14:28
PROVIDERS: PCP Internal Medicine; Visit Provider Registered Nurse Emergency
DX: J30.89 Other allergic rhinitis (principal)
CPT/HCPCS: 95117; 95165

== ENCOUNTER 2025-06-25 14:28 | Outpatient (AMB) | payer MEDICARE, SELFPAY ==
--- OUTSIDE RECORDS SUMMARY | 2025-06-25 16:46 | XMS_ITS | Clinical Summary ---
Author Organization [address] [place] [address] Address [address] [place] [address] Phone Care Team Providers Care Tooth Inspector Name Role Phone Murphy Ramirez MD Primary Care Provider [phone] Allergies Active Allergy Reactions Criticality Noted Date [...] mg capsule Take by mouth. Acti ve magnesium oxide 500 mg magnesium tablet Take 1 tablet by mouth 1 (one) time each day. Active montelukast (SINGULAIR) 10 mg tablet Take 1 tablet (10 mg total) by mouth at bedtime. Active atenoloL (TENORMIN) 50 mg tablet Take 1 tablet (50 mg total) by mouth 2 (two) times [...] meals 90 tablet 2 01/03/20 25 Active anastrozole (ARIMIDEX) 1 mg Take 1 tablet (1 mg total) by mouth 1 (one) time each day 025 Discontin ued(Thera py completed ) triamcinolone acetonide (NASACORT NASL) by Nasal route. 05/24 10/24 025 Discontin ued(Thera py completed ) Active Problems Problem Noted Date Diagnosed Date [...] Encounters Date Type Department Care Team Description 06/12/2025 9:40 AM EDT Office Visit [facility] - [address] [place] [phone] Mile Chow PA PVC's (premature ventricular contractions) (Primary Dx); Typical atrial flutter (CMS/HCC V24, CMS/HCC V28); Primary hypertension; Hyperlipidemia, unspecified hyperlipidemia type 03/28/2025 Telephone [facility] - [address] [place] [phone] Mile Chow PA from Last 3 Months Surgical History Surgery Date Site/Laterality Comments TOTAL KNEE ARTHROPLASTY PROCEDURE: HISTORICAL TOTAL KNEE REPLACE OTHER SURGICAL HISTORY PROCEDURE: HISTORY OTHER; COMMENT: Hammer toe operation CARDIOVERSION DONE ON 01/13/2025 AT [facility] W CR INDICATIONS:Atrial flutter ABLATION DONE ON 01/27/2025 AT [facility] [place] W SR INDICATIONS:Atrial flutter. Medical History Medical [...] Sign Reading Time Taken Comments Blood Pressure 132/76 06/12/2025 10:00 AM EDT Pulse 64 06/12/2025 9:31 AM EDT Temperature - - Respiratory Rate 17 01/13/2025 2:15 PM EDT Oxygen Saturation 93% 06/12/2025 9:31 AM EDT Inhaled Oxygen Concentration - - Weight 81.2 kg (179 lb) 06/12/2025 9:31 AM EDT Height 154.9 cm (5' 1 ) 06/12/2025 9:31 AM EDT Body Mass Index 33.82 06/12/2025 9:31 AM EDT Plan of Treatment Health Maintenance Due Date Last Done Comments [...] on patient's age to complete this topic Procedures Procedure Name Priority Date/Time Associated Diagnosis Comments ECG 12-LEAD Routine 06/12/2025 10:07 AM EDT PVC's (premature ventricular contractions) from Last 3 Months Results * ECG 12 lead (06/12/2025 10:07 AM EDT) Ventricular Rate ECG 64 BPM GEMUSE Atrial Rate 64 BPM GEMUSE P-R Interval 174 ms GEMUSE QRS Duration 88 ms GEMUSE Q-T Interval 412 ms GEMUSE QTc 425 ms GEMUSE P Wave [place] 60 degrees GEMUSE R [place] 11 degrees GEMUSE T [place] 17 degrees GEMUSE ECG Interpretation Normal sinus rhythm Possible Left atrial enlargement Borderline ECG When compared with ECG of 19-FEB-2025 14:26, No significant change was found Confirmed by Kwame HILTON JOHN ([id number]) on 06/22/2025 5:03:56 PM GEMUSE 06/12/2025 9:43 AM EDT 06/22/2025 5:03 PM EDT us Mile GARCIA ECG ORDERABLES Edited Result - Final GEMUSE from Last 3 Months Insurance MEDICARE [facility] Care Teams Tooth Inspector Relationship Specialty Start Date End Date Murphy Ramirez MD [address] [place] PCP - General Internal Medicine 04/27/21
== END 2025-06-25 14:55 | disposition home or self-care (01) ==
LOC: HO.HMGAL 14:28
PROVIDERS: PCP Internal Medicine; Visit Provider Registered Nurse Emergency
DX: J30.89 Other allergic rhinitis (principal)
CPT/HCPCS: 95117; 95165

== ENCOUNTER 2025-07-07 14:26 | Outpatient (AMB) | payer MEDICARE, SELFPAY ==
--- OUTSIDE RECORDS SUMMARY | 2025-07-07 19:53 | XMS_ITS | Clinical Summary ---
Author Organization [address] [place] [address] Address [address] [place] [address] Phone Care Team Providers Care Composition Roll Maker And Cutter Name Role Phone Murphy Ramirez MD Primary Care Provider [phone] Allergies Active Allergy Reactions Criticality Noted Date [...] mg total) by mouth at bedtime. Active atorvastatin (LIPITOR) 40 mg tablet Take [...] meals 90 tablet 2 01/03/20 25 Active atenoloL (TENORMIN) 50 mg tablet Take 1 tablet (50 mg total) by mouth 2 (two) times a day. 180 tablet 3 06/26/20 25 Active anastrozole (ARIMIDEX) 1 mg Take 1 tablet (1 mg total) by mouth 1 (one) time each day 025 Discontin ued(Thera py completed ) triamcinolone acetonide (NASACORT NASL) by Nasal route. 05/24 10/24 025 Discontin ued(Thera py completed ) atenoloL (TENORMIN) 50 mg tablet Take 1 tablet (50 mg total) by mouth 2 (two) times a day. 025 Discontin ued(Reord er) Active Problems Problem Noted Date Diagnosed Date [...] Description 06/12/2025 9:40 AM EDT Office Visit [facility] - [address] [place] [address] Mile Chow PA PVC's (premature ventricular contractions) (Primary Dx); Typical atrial flutter (CMS/HCC V24, CMS/HCC V28); Primary hypertension; Hyperlipidemia, unspecified hyperlipidemia type from Last 3 Months Surgical History Surgery Date Site/Laterality Comments TOTAL KNEE ARTHROPLASTY PROCEDURE: HISTORICAL TOTAL KNEE REPLACE OTHER SURGICAL HISTORY PROCEDURE: HISTORY OTHER; COMMENT: Hammer toe operation CARDIOVERSION DONE ON 01/13/2025 AT [facility] W CR INDICATIONS:Atrial flutter ABLATION DONE ON 01/27/2025 AT [facility] W SR INDICATIONS:Atrial flutter. Medical History Medical [...] GEMUSE QTc 425 ms GEMUSE P Wave [place] 60 degrees GEMUSE R [place] 11 degrees GEMUSE T [place] 17 degrees GEMUSE ECG Interpretation Normal sinus rhythm Possible Left atrial enlargement Borderline ECG When compared with ECG of 19-FEB-2025 14:26, No significant change was found Confirmed by Kwame HILTON JOHN ([id number]) on 06/22/2025 5:03:56 PM GEMUSE 06/12/2025 9:43 AM EDT 06/22/2025 5:03 PM EDT Mile GARCIA ECG ORDERABLES Edited Result - Final GEMUSE from Last 3 Months Insurance MEDICARE [facility] Care Teams Composition Roll Maker And Cutter Relationship Specialty Start Date End Date Murphy Ramirez MD [address] [place] [place] PCP - General Internal Medicine 04/27/21
== END 2025-07-07 14:27 | disposition home or self-care (01) ==
LOC: HO.HMGAL 14:26
PROVIDERS: PCP Internal Medicine; Visit Provider Registered Nurse Emergency
DX: J30.89 Other allergic rhinitis (principal)
CPT/HCPCS: 95117; 95165

== ENCOUNTER 2025-08-06 11:45 | Outpatient (AMB) | payer MEDICARE, SELFPAY ==
--- OUTSIDE RECORDS SUMMARY | 2025-08-06 14:55 | XMS_ITS | Clinical Summary ---
Author Organization [address] [place] [address] Address [address] [place] [address] Phone Care Team Providers Care Welding Machine Operator Name Role Phone Murphy Ramirez MD Primary Care Provider [phone] Allergies Active Allergy Reactions Criticality Noted Date [...] day. 180 tablet 3 06/26/20 25 Active Active Problems Problem Noted Date [...] Description 06/12/2025 9:40 AM EDT Office Visit [facility] - [address] [place] [address] Mile Chow PA PVC's (premature ventricular contractions) (Primary Dx); Typical atrial flutter (CMS/HCC V24, CMS/HCC V28); Primary hypertension; Hyperlipidemia, unspecified hyperlipidemia type from Last 3 Months Surgical History Surgery Date Site/Laterality Comments TOTAL KNEE ARTHROPLASTY PROCEDURE: HISTORICAL TOTAL KNEE REPLACE OTHER SURGICAL HISTORY PROCEDURE: HISTORY OTHER; COMMENT: Hammer toe operation CARDIOVERSION DONE ON 01/13/2025 AT [facility] W CR INDICATIONS:Atrial flutter ABLATION DONE ON 01/27/2025 AT [facility] [place] W SR INDICATIONS:Atrial flutter. [...] GEMUSE QTc 425 ms GEMUSE P Wave [place] 60 degrees GEMUSE R [place] 11 degrees GEMUSE T [place] 17 degrees GEMUSE ECG Interpretation Normal sinus rhythm Possible Left atrial enlargement Borderline ECG When compared with ECG of 19-FEB-2025 14:26, No significant change was found Confirmed by Kwame HILTON JOHN ([id number]) on 06/22/2025 5:03:56 PM GEMUSE 06/12/2025 9:43 AM EDT 06/22/2025 5:03 PM EDT us Mile GARCIA ECG ORDERABLES Edited Result - Final GEMUSE from Last 3 Months Insurance MEDICARE [facility] Care Teams Welding Machine Operator Relationship Specialty Start Date End Date Murphy Ramirez MD [address] [facility] [place] PCP - General Internal Medicine 04/27/21
== END 2025-08-06 11:46 | disposition home or self-care (01) ==
LOC: HO.HMGAL 11:45
PROVIDERS: PCP Internal Medicine; Visit Provider Registered Nurse Emergency
DX: J30.89 Other allergic rhinitis (principal)
CPT/HCPCS: 95117; 95165

== ENCOUNTER 2025-08-07 09:59 | Outpatient (AMB) | payer MEDICARE, SELFPAY ==
[2025-08-07 10:02] VITALS: BP 148/60; PULSE 70; O2SAT 95; BMI 33.3
--- NOTE | 2025-08-07 10:02 | A.OFFVIS_ITS ---
Vital Signs 08/07/25 10:02 08/07/25 10:37 Height 5 ft 1 in Weight 176 lb 5.917 oz BMI 33.3 BP 148/60 H 120/56 L Blood Pressure Location Lt brachial Lt brachial Position Sitting Sitting Pulse 70 Pulse Source Pulse Oximeter Pulse Oximetry (%) 95 Oxygen Delivery Method Room Air Intake Visit Reasons: copd Consulting Networking Engineer Required: No Accompanied by: Self / Same As Patient Allergies acetaminophen (Percocet) Allergy (Severe, Verified 08/07/25 10:06) Nausea and Vomiting celecoxib (Celebrex) Allergy (Severe, Verified 08/07/25 10:06) Swollen doxycycline Allergy (Severe, Verified 08/07/25 10:06) Rash oxycodone (Percocet) Allergy (Severe, Verified 08/07/25 10:06) Nausea and Vomiting Clindamycin HCl Allergy (Severe, Uncoded 08/27/24 10:44) Face Swollen Sulfa Drugs Allergy (Severe, Uncoded 08/27/24 10:44) Face Swollen HPI Comments Details: The patient is a 79-year-old woman with known allergic rhinitis and also allergic asthma. 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 More recently her allergies became more significant and with recent allergy testing she was switched over to allergy shots once a week. She has not been also using Zyrtec at nighttime. In regards to her asthma she appears to be pretty stable currently on Flovent. Prior to that she was on Breo. She does not use her rescue inhaler more than twice a week. She does clear her throat a lot moderate in amount with a number awake cough syndrome. The patient has never tried singular. I do believe this is a good option for her to try to try to mitigate some of the allergy symptoms. 06/04/2020 the patient is here for pulmonary follow-up visit. Overall she is doing about the same. She complains of intermittent hoarseness. She had a spacer has been helpful. She is down to 1 puff twice a day of the Advair HFA. She has not had to really use her rescue inhaler. At this time she will be going back to allergy shots. She is also taking her allergy medicine. Therefore I believe that she can go down to the Advair HFA 1 puff daily see if we can minimize irritation to her throat. In the fall when her symptoms get worse the patient can be started the twice a day Advair. She should be rinsing with mouthwash better than water. In addition to that we did talk about her pulmonary function studies demonstrating a restrictive ventilatory defect. Therefore she should have a chest x-ray at this time. 10/06/2020 the patient is here for pulmonary follow-up visit. The patient is doing well. She did decrease the inhaler. Down to 1 puff daily in the morning. Her hoarseness did get better she overall she was doing well. However, winter season started she started developing more chest tightness and shortness of breath. She did increase her Advair to 1 inhalation twice a day in now she used to be better. She continue using her allergy medicine. We again talked about her chest x-ray that she had back in some demonstrating some decreased lung volumes in with appears to be crowding of the parenchyma and v asculature. In addition to that we will see did look at her CT scan of the chest that she had many years ago she was intubated pneumonia. She had to be areas of ground-glass opacities in a bronchovascular distribution. 05/11/2021 the patient is here for pulmonary follow-up visit. Since we last spoke the patient has been complaining palpitations. Apparently she to take a course of prednisone due to worsening respiratory symptoms. Then after that the patient started the developing some increased ectopy. She was evaluated by physician noted that heart was irregular. Therefore she was sent for an evaluation [facility]. There she had an EKG with frequent PVCs. In addition to that she had an echocardiogram which was relatively normal except for some trivial tricuspid regurgitation during that workup the patient also a chest x- ray that was personally reviewed by me demonstrating a pronounced hilum otherwise no acute disease. She has PFTs demonstrating restrictive ventilatory defect. Explained to her that this is likely multifactorial. The patient has been doing well with the Advair. She has not required any additional prednisone and has not been using rescue inhaler before she is continue this medication 1 puff twice a day. The patient also had a Holter monitor and she does not have the results. She will follow-up cardiology once it is available for the patient will return in the spring in hoping that she could in the meantime working weight loss therefore we can repeat her pulmonary function studies and see if there is any significant improvement if she continues to be resected or if she to be symptomatic additional imaging studies will be warranted. Also to note the patient started developing left ear discomfort after her echocardiogram and main on her left ear down. She did follow-up with ENT. The recommended for to start a Medrol pack. She will consider starting it if she is no better. In the meantime I did recommend to try Afrin for 3-5 days to see if it improves prior to the Medrol. 03/08/2022 the patient is here for a pulmonary follow-up visit. Since we last spoke the patient was diagnosed with a atrial flutter. She did undergo cardioversion but was unsuccessful. She is following closely with Cardiology apparently value Cardiology. Now she has been referred to electrophysiology for potential ablation. She continues to have dyspnea on exertion. We did undergo repeat pulmonary function studies. Appears that her total lung capacity continues to be decreased consistent with restrictive lung disease. Her previous x-ray was not significant. I have her repeat an x-ray. If the x-ray is abnormal she is going to require additional imaging studies. If she continues to have dyspnea symptoms after her ablation or EP procedure then we can also consider additional diagnostic evaluation to further assess the restrictive lung disease that may also be contributing to her dyspnea symptoms. She continues on the Advair. It appears that is affecting beneficial. Is on likely precipitating any cardiac issues based on the small dose. 09/07/2022 the patient is here for a pulmonary follow-up visit. The patient overall has been feeling about the same. Complains of dyspnea on exertion. Moderate severity. Specially when going up a flight of stairs. We did review her last chest x-ray that she had in the office back in February demonstrating increased cardiac size with perihilar congestion cephalization suggesting some vascular distribution. She was supposed to undergo an ablation for her atrial fibrillation atrial flutter. However, the procedure has not been done as of yet. After much back in for the patient finally got a day for the ablation to be done in mid September. Therefore, will go ahead and have her follow-up with us in early spring with a chest x-ray after she recovers from her ablation see if any of those changes are still present. If her chest x-ray still abnormal then will consider getting a CT scan. Otherwise she will continue with current respiratory regimen. 02/15/2023 the patient is here for pulmonary follow-up visit. The patient overall is doing well. Now that the spring season is coming in she is having more allergies. She does good allergy therapies with her refrigerating technician locally. She gets allergy shots every 3 weeks and now we going for every 2 weeks. Recently she completed a Medrol pack and also completed a Z-Filemon. She also underwent an ablation for atrial flutter and appears to be working well. She was supposed to have a chest x-ray today but she has not had 1 as of yet. Her last chest x-ray from February 2022 that she had some vascular congestion. I am hopeful that now after the ablation or the procedure that she is doing better. The patient has been using her Advair with good effect. I will go ahead and give her additional medicines for her to take on her trip to [place]. She does have still a sore throat and some lymphadenopathy that is tender around the neck area. She has multiple allergies. Therefore I will give another Z-Filemon and Medrol in case she gets worse again. In the meantime the patient will continue with current respiratory medications will follow-up in the spring on as any new issues arise. When she has a chest x-ray done if there is any abnormalities I will request additional imaging studies. 08/27/2024 the patient is here for a pulmonary follow-up visit. The patient overall has been doing well. Several months ago the patient did have an episode of sinusitis again before going on a cruise and she did require a short course of azithromycin and a Medrol Filemon and that improved her symptoms after a week. She was able to enjoy her cruise. She is back to her baseline. Although she does have significant allergies and she needs to stay on the Singulair that does help her. She is also taking Advair HFA but she tries to minimize it 1 puff twice a day which is perfectly fine. She can always increase it if she has any worsening symptoms. When she came in today her blood pressure was elevated but most likely because she was rushing. We did recheck it again was okay. In addition to that her oxygen had been slightly on the low side so will have her get a chest x-ray. Her respiratory exam is reassuring. She does have a postnasal drip and will go ahead and treated with Atrovent nasal spray for that. She does not have any history of glaucoma. Therefore, she will have a chest x- ray whenever possible and she will continue with current respiratory therapy and will send the prescriptions to the pharmacy. The patient will follow-up in a year's time. If she has any issues prior to that she will call for an earlier assessment. [facility] Medical History (Updated 08/07/25 @ 10:24 by Musa Alfaro MD) Allergies Atrial flutter Chronic rhinitis Chronic restrictive lung disease Asthma Social History (Updated 08/07/25 @ 10:09 by Elise Carreno CMA) Alcohol intake: current Alcohol intake frequency: holidays/special occasions only Patient Tobacco Use Status: Never used Tobacco Review of Systems Const Denies night sweats ENT Denies change in voice, Denies lip swelling, Denies mouth pain, Reports nasal congestion, Reports nasal discharge, Reports post nasal drip and Denies tongue swelling Card Denies chest pain and Reports dyspnea on exertion Resp Denies chest congestion, Reports cough and Reports dyspnea on exertion GI Denies abdominal pain Musc Denies no additional complaints Neuro Denies Neuro-related abnormal movements Psych Denies no additional complaints Bossman/Lymph Denies easy bleeding and Denies lymphadenopathy Aller/Immun Denies lip swelling and Denies tongue swelling Physical Exam Vital Signs: Last Vital Signs Pulse 70 08/07/25 10:02 BP 120/56 L 08/07/25 10:37 Pulse Ox 95 08/07/25 10:02 Oxygen Delivery Method Room Air 08/07/25 10:02 BMI result Body Mass Index 33.3 Const General: alert Neck Neck: Yes normal visual inspection, Yes full ROM and Yes no lymphadenopathy Chest Chest palpation & inspection: normal inspection of the chest Resp Auscultation: diminished lung sounds Cardio Heart sounds: S1 normal heart sound present and S2 normal heart sound present GI Palpation (GI): Soft to palpation and nontender Auscultation: normal bowel sounds Skin General skin exam: no rashes or lesions noted Extrem General: Yes no clubbing, cyanosis or edema Assessment & Plan Assessment & Plan (1) Chronic rhinitis: Code(s): J31.0 - Chronic rhinitis Category: Medical (2) Chronic restrictive lung disease: Comment: Based on PFTs Code(s): J98.4 - Other disorders of lung Category: Medical (3) Asthma: Code(s): J45.909 - Unspecified asthma, uncomplicated Category: Medical Qualifiers: Asthma complication type: uncomplicated Asthma persistence: persistent Asthma severity: moderate Qualified Code(s): J45.40 - Moderate persistent asthma, uncomplicated (4) Allergies: Code(s): T78.40XA - Allergy, unspecified, initial encounter Category: Medical Qualifiers: Encounter type: subsequent encounter Qualified Code(s): T78.40XD - Allergy, unspecified, subsequent encounter Plan continue fluticasone nasal spray atrovent nasal spray as needed continue Advair HFA continue singulair THOM as needed continue with allergy, will refer consider Xolair F/U 8-12 months Orders: Referrals Allergy & Immunology Referral T78.40XA - Allergy, unspecified, initial encounter Coding Level of Care Code Est Pt Level 4 (72749) Diagnoses Chronic rhinitis J31.0 Chronic restrictive lung disease J98.4 Moderate persistent asthma without complication J45.40 Asthma complication type: uncomplicated Asthma persistence: persistent Asthma severity: moderate Allergy, subsequent encounter T78.40XD Encounter type: subsequent encounter Time Spent (min) 16
[2025-08-07 10:37] VITALS: BP 120/56
--- OUTSIDE RECORDS SUMMARY | 2025-08-07 11:53 | XMS_ITS | Clinical Summary ---
Author Organization [address] [place] [address] Address [address] [place] [address] Phone Care Team Providers Care Security Escort Name Role Phone Murphy Ramirez MD Primary Care Provider [phone] Allergies Active Allergy Reactions Criticality Noted Date [...] Description 06/12/2025 9:40 AM EDT Office Visit [facility] - [address] [place] [address] Mile Chow PA PVC's (premature ventricular contractions) (Primary Dx); Typical atrial flutter (CMS/HCC V24, CMS/HCC V28); Primary hypertension; Hyperlipidemia, unspecified hyperlipidemia type from Last 3 Months Surgical History Surgery Date Site/Laterality Comments TOTAL KNEE ARTHROPLASTY PROCEDURE: HISTORICAL TOTAL KNEE REPLACE OTHER SURGICAL HISTORY PROCEDURE: HISTORY OTHER; COMMENT: Hammer toe operation CARDIOVERSION DONE ON 01/13/2025 AT [facility] W CR INDICATIONS:Atrial flutter ABL[place] [facility] INDICATIONS:Atrial flutter. Medical History Medical [...] GEMUSE QTc 425 ms GEMUSE P Wave [place] 60 degrees GEMUSE R [place] 11 degrees GEMUSE T [place] 17 degrees GEMUSE ECG Interpretation Normal sinus rhythm Possible Left atrial enlargement Borderline ECG When compared with ECG of 19-FEB-2025 14:26, No significant change was found Confirmed by Kwame HILTON JOHN ([id number]) on 06/22/2025 5:03:56 PM GEMUSE 06/12/2025 9:43 AM EDT 06/22/2025 5:03 PM EDT us Mile GARCIA ECG ORDERABLES Edited Result - Final GEMUSE from Last 3 Months Insurance MEDICARE [facility] Care Teams Security Escort Relationship Specialty Start Date End Date Murphy Ramirez MD [address] [facility] [place] PCP - General Internal Medicine 04/27/21
== END 2025-08-07 11:01 | disposition home or self-care (01) ==
LOC: HO.HPS 10:00
PROVIDERS: PCP Internal Medicine; Visit Provider Hospitalist
DX: J31.0 Chronic rhinitis (principal); J98.4 Other disorders of lung; J45.40 Moderate persistent asthma, uncomplicated; T78.40XD Allergy, unspecified, subsequent encounter
CPT/HCPCS: 99214

== ENCOUNTER → 2025-08-07 09:59 | Outpatient (BNVA) | payer MEDICARE, SELFPAY | PROVIDERS: PCP Internal Medicine; Visit Provider Hospitalist | DX: J45.40 Moderate persistent asthma, uncomplicated (principal); T78.40XD Allergy, unspecified, subsequent encounter; J98.4 Other disorders of lung; J31.0 Chronic rhinitis; Z79.899 Other long term (current) drug therapy | CPT/HCPCS: 99212 ==

== ENCOUNTER 2025-08-18 15:08 | Outpatient (AMB) | payer MEDICARE, SELFPAY ==
--- OUTSIDE RECORDS SUMMARY | 2025-08-18 18:30 | XMS_ITS | Clinical Summary ---
Author Organization [address] [place] [address] Address [address] [place] [address] Phone Care Team Providers Care Train Braker Name Role Phone Murphy Ramirez MD Primary Care Provider [phone] Allergies Active Allergy Reactions Criticality Noted Date [...] Description 06/12/2025 9:40 AM EDT Office Visit [facility] [address] [place] [address] Mile Chow PA PVC's (premature ventricular contractions) (Primary Dx); Typical atrial flutter (CMS/HCC V24, CMS/HCC V28); Primary hypertension; Hyperlipidemia, unspecified hyperlipidemia type from Last 3 Months Surgical History Surgery Date Site/Laterality Comments TOTAL KNEE ARTHROPLASTY PROCEDURE: HISTORICAL TOTAL KNEE REPLACE OTHER SURGICAL HISTORY PROCEDURE: HISTORY OTHER; COMMENT: Hammer toe operation CARDIOVERSION DONE ON 01/13/2025 AT [facility] W CR INDICATIONS:Atrial flutter ABLATION DONE ON 01/27/2025 AT [facility] W SR INDICATIONS:Atrial flutter. Medical History Medical [...] GEMUSE QTc 425 ms GEMUSE P Wave [place] 60 degrees GEMUSE R [place] 11 degrees GEMUSE T [place] 17 degrees GEMUSE ECG Interpretation Normal sinus rhythm Possible Left atrial enlargement Borderline ECG When compared with ECG of 19-FEB-2025 14:26, No significant change was found Confirmed by Kwame HILTON JOHN ([id number]) on 06/22/2025 5:03:56 PM GEMUSE 06/12/2025 9:43 AM EDT 06/22/2025 5:03 PM EDT us Mile GARCIA ECG ORDERABLES Edited Result - Final GEMUSE from Last 3 Months Insurance MEDICARE [employer] Care Teams Train Braker Relationship Specialty Start Date End Date Murphy Ramirez MD [address] [facility] [place] PCP - General Internal Medicine 04/27/21
--- OUTSIDE RECORDS SUMMARY | 2025-08-18 18:30 | XMS_ITS | Data Portability ---
Author Organization [place] - [email or web address], [employer], [facility] Address [address] [place] [address] Care Team Providers Care Glost Tile Sorter Name Role Phone PAULETTE DIOR Referring Provider [phone] AKILA COTE Primary Care Provider OCTAVIO MONTEMAYOR OTHER Assessment No assessment recorded. Plan of Treatment Reminders Order Date Submit Date Provider Last Modified By Organization Details Last Modified Time Details Appointments None recorded. Lab None recorded. Referral None recorded. Procedures None recorded. Surgeries None recorded. Imaging None recorded. Medication Orders prednisone 20 mg tablet 2016 017 INTERFACE [facility] #4726, [address] [place], [address], 7 16:15:00 Cheratussi n AC 10 mg-100 mg/5 mL oral liquid 2016 017 epapan [facility] #4726, [address] [place], [address], 7 16:15:10 Breo Ellipta 200 mcg-25 mcg/dose powder for inhalation 2016 017 INTERFACE [facility] #4726, [address] [place], [address], 7 16:22:52 Patient TargetsNo targets recorded. Patient Instructions Encounter Date Encounter Id Patient Instructions Last Modified By Organization Details Last Modified Time 12/04/2016 [id number] managing your allergies: care instructions ALEXANDRO Not available 12/06/2016 05:53:26 seasonal allergies: care instructions ALEXANDRO Not available 12/06/2016 05:53:26 bronchitis: care instructions ALEXANDRO Not available 12/06/2016 05:54:31 Reason for Referral None Reported. Procedures Surgical History Date Name Laterality Status Provider Name and Address Organization Details Recorded Time 10/23/2013 [facility] 15:44:02 10/23/2011 Joint replacement , Knee completed [facility] 12/04/2016 15:43:47 Imaging Results None recorded. Procedure Notes None recorded. Medical Equipment None Reported. Allergies Allergen ID Allergen Name Allergen Category Reaction Reaction Severity Criticality Documentation Date Start Date Code Code System Note Provider Name and Address Organization Details Recorded Time 814073 clindamyc in Not available rash Not available Not available 12/04/2016 2582 RxNorm Geovanna Parker [facility] 7 15:35:59 074835 Celebrex medicatio n rash Not available Not available 12/04/2016 72518 7 RxNorm Geovanna Parker [facility] 7 15:36:15 643495 Substance with sulfonami de structure and antibacte rial mechanism of action (substanc e) medicatio n rash Not available Not available 12/04/2016 27892 8003 SNOMED Geovanna Parker [facility] 7 15:36:32 651940 acetamino phen / oxycodone medicatio n nausea Not available Not available 12/04/2016 19292 3 RxNorm Geovanna aPrker [facility] 7 15:36:57 664788 doxycycli ne Not available nausea Not available Not available 12/04/2016 3640 RxNorm abdom inal pain Geovanna Parker [facility] 7 15:37:34 Medications Name Sig Start Date Stop Date Status Note LastModified by Organization Details LastModified Time atorvastati n 40 mg tablet active Not Available Not Available Not Available azithromyci n 250 mg tablet 12/04 completed Not Available Not Available Not Available prednisone 20 mg tablet 3 EVERY DAY FOR 3 DAYS, 2 EVERY DAY FOR 3 DAYS, ONE EVERY DAY FOR 3 DAYS, HALF EVERY DAY FOR 3 DAYS active Not Available Not Available No t Available ciprofloxac in 500 mg tablet 12/04 completed Not Available Not Available Not Available losartan 100 mg-hydrochl orothiazide 25 mg tablet active Not Available Not Available Not Available methylpredn isolone 4 mg tablets in a dose pack 12/04 completed Not Available Not Available Not Available doxycycline hyclate 100 mg tablet 12/04 completed Not Available Not Available Not Available atenolol 50 mg tablet active Not Available Not Available No t Available sulindac 200 mg tablet active Not Available Not Available Not Available Ventolin HFA 90 mcg/actuati on aerosol inhaler active Not Available Not Available Not Available Boostrix Tdap 2.5 Lf unit-8 mcg-5 Lf/0.5 mL intramuscul ar syringe TO BE ADMINISTE RED BY PHARMACIS T FOR IMMUNIZAT ION active Not Available Not Available No t Available ProAir HFA active Not Available Not Av ailable Not Available Virtussin AC 10 mg-100 mg/5 mL oral liquid TK 5-10 ML PO QID PRN FOR COUGH active Not Available Not Available No t Available Breo Ellipta 200 mcg-25 mcg/dose powder for inhalation INHALE 1 BLISTER(S ) EVERY 24 HOURS BY INHALATIO N ROUTE. active Not Available Not Available No t Available Fluzone High-Dose (PF) 180 mcg/0.5 mL intramuscul ar syringe TO BE ADMINISTE RED BY PHARMACIS T FOR IMMUNIZAT ION active Not Available Not Available No t Available Vitals Date Recorded Body weight Body height Body mass index (BMI) Body temperature Heart rate Respiratory rate Oxygen saturation Oxygen saturation in Arterial blood by Pulse oximetry Systolic And Diastolic Provider Name and Address Organization Details Last Updated DateTime 7 41145.6 5 g 157.48 cm 34.3 kg/m2 98.7 [degF] 81 /min 16 /min 98 % 98 % 154/82 mm[Hg] Geovanna BAILEY - [facility], [facility] 7 15:57:49 Social History Question Answer Notes LastModified by Organizat ion Details LastModified Time Tobacco Smoking Status Never Smoker [facility] 12/04/2016 15:41:26 Alcohol Use No [email or web address] Information n ot available 12/04/2016 Marital Status [email or web address] Informatio n not available 12/04/2016 Sex: Unknown Functional Status Question Answer Note LastModified by Organization D etails LastModified Time What is your level of alcohol consumption? None [email or web address] Information not available 12/04/2016 What is your exercise level? Moderate [email or web address] Information not available 12/04/2016 Mental Status None recorded. Family History Relationship Description Onset Age of this Age Resolved Age Notes LastModified by Organization Details LastModified Time Mother [email or web address] Not available 12/04/2016 15:41:14 Father [email or web address] Not available 12/04/2016 15:41:14 Medical History Condition Response Cancer (location) N Other N Gout N Thyroid Disease N Kidney Stones N Measles/Mumps N Emphysema/COPD N Sexually Transmitted Disease N Depression N Prostate Problems N Vascular Disease N Rash/Skin Condition N Amputation (location) N Parkinson's N Paralysis N Headaches/Migraines N Cardiac Pacemaker/defibrillator N Nerve Damage / Neuropathy N Arthritis Y Sleep disorder/Insomnia N Heart disease / Heart Attack N Crohn's Disease N HIV/AIDS N Stroke/TIA N Colon Problems N High Cholesterol Y Serious Injuries N Kidney Disease N Memory Loss/Alzheimer's N Gallbladder disease N High blood pressure Y Congestive heart failure N Falls N Alcohol Overuse N Blood Thinner Treatment N Hormone Replacement N Nervous Breakdown N Prieto's Esophagus N Anemia N Urinary Problems N Colon Polyps N Gastritis N Hospitalizations (other than operations) N Back pain N Diabetes N Rheumatic Fever N Bleeding Disorder N Cardiac Arrhythmias /irregular heart rat e N Osteopenia/Osteoporosis N Anxiety/Stress N Asthma Y Vision Problems N Erectile / Sexual Dysfunction N Ostomies (location) N Seizures N Jaundice N Sleep Apnea N Hepatitis N Cirrhosis N GERD/Ulcer N Chicken Pox N Allergies (other than meds) N Gynecological HistoryNo gynecological history recorded. Obstetrics History GPAL:G 0 P 0 0 0 0 Immunizations Vaccine Type Date Status Note Provider Nam e and Address Organization Details Recorded Time influenza, unspecified formulation 06/23/2016 completed [facility] 12/04/2016 15:39:21 pneumococcal, unspecified formulation 10/23/2010 completed Geovanna shelton [facility], [facility] 12/04/2016 15:39:39 zoster live 10/23/2013 completed Geovanna shelton [facility], [facility] 12/04/2016 15:39:59 tetanus toxoid, unspecified formulation 10/23/2015 completed Geovanna shelton [facility], [facility] 12/04/2016 15:40:12 Past Encounters Encounter ID Performer Location Encounter Start Date Encounter Closed Date Diagnosis/Indication Diagnosis SNOMED-CT Code Diagnosis ICD10 Code Diagnosis IMO Codes Diagnosis Note [id number] Paulette Dior MD 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 citrix systems administrator and pulmonolog ist Allergic r hinitis caused by pollen 80820626 J30.1 Health Concerns Section Related Observation LastModified by Organization Detai ls LastModified Time None Recorded Concern Status LastModified by Organization Details LastModified Time None Recorded Advance Directives Directive None Recorded Payers Insurance Date Sequence Insurance Name Policy Number Policy Goldman Covered Member ID Goldman Member ID Guarantor Name 12/04/2016 1 [place] Lesli Escobar [id number] Lesli Escobar 12/05/2016 2 [facility] [id number] Lesli Escobar [id number] Lesli Escobar Notes Date Note Type Note Provider Name and Address Organization Details Recorded Time 12/04/19 17 text/htm l Cough / ColdReported by PatientHPIFor reason for visit, patient reportsacute complaint. For quality, patient reportsproductiveandannoying / tickle. For sputum quality, patient reportsyellow. For severity, patient reportsmoderate __. For onset/timing, patient reportsseveral days ago. For alleviating factors, patient reportsnothing helps. For aggravating factors, patient reportslying down. For associated symptoms, patient reportscongestion. For duration, patient reportsconstant. For context, patient reportsusual activity.on immunotherapyhas missed a shotrecent cruisezpak was given incase on the cruiseall week she has been coughing and wheezingcan not take decongestant due to her bpa few months ago was tx with zpak and medrol dose packROS as noted in the HPI Paulette Dior MD [address] [facility] [address], [place], [address], [facility] - [facility], [facility] 12/04/2016 16:27:52 OBGyn Episode No OBEpisode recorded.
== END 2025-08-18 15:09 | disposition home or self-care (01) ==
LOC: HO.HMGAL 15:08
PROVIDERS: PCP Internal Medicine; Visit Provider Registered Nurse Emergency
DX: J30.89 Other allergic rhinitis (principal)
CPT/HCPCS: 95117; 95165

== ENCOUNTER 2025-09-01 11:56 | Outpatient (AMB) | payer MEDICARE, SELFPAY ==
--- OUTSIDE RECORDS SUMMARY | 2025-09-01 14:22 | XMS_ITS | Data Portability ---
Author Organization [place] - [employer], [employer], [facility] Address [address] [place] [address] Care Team Providers Care Infection Prevention Coordinator Name Role Phone PAULETTE DIOR Referring Provider [phone] AKILA COTE Primary Care Provider [phone] OCTAVIO MONTEMAYOR OTHER Assessment No assessment recorded. Plan of Treatment Reminders Order Date Submit Date Provider Last Modified By Organization Details Last Modified Time Details Appointments None recorded. Lab None recorded. Referral None recorded. Procedures None recorded. Surgeries None recorded. Imaging None recorded. Medication Orders prednisone 20 mg tablet 2016 017 INTERFACE [facility] #4726, [address] [place], [address], 7 16:15:00 Cheratussi n AC 10 mg-100 mg/5 mL oral liquid 2016 017 epapan [facility] #4726, [address] [place], [address], 7 16:15:10 Breo Ellipta 200 mcg-25 mcg/dose powder for inhalation 2016 017 INTERFACE [facility] #4726, [address] [place], [address], 7 16:22:52 Patient TargetsNo targets recorded. Patient Instructions Encounter Date Encounter Id Patient Instructions Last Modified By Organization Details Last Modified Time 12/04/2016 [id number] managing your allergies: care instructions ALEXANDRO Not available 12/06/2016 05:53:26 seasonal allergies: care instructions ALEXANDRO Not available 12/06/2016 05:53:26 bronchitis: care instructions ALEXANDRO Not available 12/06/2016 05:54:31 Reason for Referral None Reported. Procedures Surgical History Date Name Laterality Status Provider Name and Address Organization Details Recorded Time 10/23/2013 [facility]2016 15:44:02 10/23/2011 Joint replacement , Knee completed [facility] 12/04/2016 15:43:47 Imaging Results None recorded. Procedure Notes None recorded. Medical Equipment None Reported. Allergies Allergen ID Allergen Name Allergen Category Reaction Reaction Severity Criticality Documentation Date Start Date Code Code System Note Provider Name and Address Organization Details Recorded Time 450242 clindamyc in Not available rash Not available Not available 12/04/2016 2582 RxNorm Geovanna Parker [facility] 7 15:35:59 821884 Celebrex medicatio n rash Not available Not available 12/04/2016 86303 7 RxNorm Geovanna Parker [facility] 7 15:36:15 701990 Substance with sulfonami de structure and antibacte rial mechanism of action (substanc e) medicatio n rash Not available Not available 12/04/2016 21306 8003 SNOMED Geovanna Parker [facility] 7 15:36:32 780832 acetamino phen / oxycodone medicatio n nausea Not available Not available 12/04/2016 90923 3 RxNorm Geovanna Parker [facility] 7 15:36:57 162806 doxycycli ne Not available nausea Not available Not available 12/04/2016 3640 RxNorm abdom inal pain Geovanna Parker [facility] 7 15:37:34 Medications Name Sig Start Date [...] Address Organization Details Last Updated DateTime 7 23125.6 5 g 157.48 cm 34.3 kg/m2 98.7 [degF] 81 /min 16 /min 98 % 98 % 154/82 mm[Hg] Geovanna BAILEY - [facility], [facility] 7 15:57:49 Social History Question Answer Notes LastModified by Organizat ion Details LastModified Time Tobacco Smoking Status Never Smoker [facility] 12/04/2016 15:41:26 Alcohol Use No Information n ot available 12/04/2016 Marital Status Informatio n not available 12/04/2016 Sex: Unknown Functional Status Question Answer Note LastModified by Organization D etails LastModified Time What is your level of alcohol consumption? None [email or web address] Information not available 12/04/2016 What is your exercise level? Moderate Information not available 12/04/2016 Mental Status None recorded. Family History Relationship Description Onset Age of this Age Resolved Age Notes LastModified by Organization Details LastModified Time Mother [email or web address] Not available 12/04/2016 15:41:14 Father [email or web address] Not available 12/04/2016 15:41:14 Medical History Condition [...] influenza, unspecified formulation 06/23/2016 completed [facility]ha [facility] 12/04/2016 15:39:21 pneumococcal, unspecified formulation 10/23/2010 completed Geovanna shelton [facility] Physician [facility], [facility] 12/04/2016 15:39:39 zoster live 10/23/2013 completed Geovanna shelton [facility], [facility] 12/04/2016 15:39:59 tetanus toxoid, unspecified formulation 10/23/2015 completed Geovanna shelton [facility], [facility] 12/04/2016 15:40:12 Past Encounters Encounter ID Performer Location Encounter Start Date Encounter Closed Date Diagnosis/Indication Diagnosis SNOMED-CT Code Diagnosis ICD10 Code Diagnosis IMO Codes Diagnosis Note [id number] Paulette Dior MD [facility] WALK IN [address] [place] [phone] 12/04/2016 14:55:50 12/04/2016 16:33:31 Acute bronchitis 07391650 J20.9 she has multiple drug allergies and possibly allergic to pcnShe has recently completed a course of treatment of azithromyc inI would like to hold off additional antibiotic s at the moment Reactive a irway disease 8244290479 06 J45.909 treatment the review of started, adverse effects discussed, she is to follow-up with her machine puller and pulmonolog ist Allergic r hinitis caused by pollen 52127568 J30.1 Health Concerns Section Related Observation LastModified by Organization Detai ls LastModified Time None Recorded Concern Status LastModified by Organization Details LastModified Time None Recorded Advance Directives Directive None Recorded Payers Insurance Date Sequence Insurance Name Policy Number Policy Goldman Covered Member ID Goldman Member ID Guarantor Name 12/04/2016 1 [place] Lesli Escobar [id number] Lesli Escobar 12/05/2016 2 [facility] [id number] Lesli Escobar [id number] Lesli Escobar Notes Date Note Type [...] noted in the HPI Paulette Dior MD [address] [facility] [address], [place], [address], [facility] - [facility], [facility] 12/04/2016 16:27:52 OBGyn Episode No OBEpisode recorded.
--- OUTSIDE RECORDS SUMMARY | 2025-09-01 14:22 | XMS_ITS | Clinical Summary ---
Author Organization [address] [place] [address] Address [address] [place] [address] Phone Care Team Providers Care Control Systems Developer Name Role Phone Murphy Ramirez MD Primary Care Provider [phone] Allergies Active Allergy Reactions Criticality Noted Date [...] Description 06/12/2025 9:40 AM EDT Office Visit [facility] [address] [place] [address] Mile Chow PA PVC's (premature ventricular contractions) (Primary Dx); Typical atrial flutter (CMS/HCC V24, CMS/HCC V28); Primary hypertension; Hyperlipidemia, unspecified hyperlipidemia type from Last 3 Months Surgical History Surgery Date Site/Laterality Comments TOTAL KNEE ARTHROPLASTY PROCEDURE: HISTORICAL TOTAL KNEE REPLACE OTHER SURGICAL HISTORY PROCEDURE: HISTORY OTHER; COMMENT: Hammer toe operation CARDIOVERSION DONE ON 01/13/2025 AT [facility] W CR INDICATIONS:Atrial flutter ABLATION DONE ON 01/27/2025 AT [facility] W SR INDICATIONS:Atrial flutter. Medical History Medical [...] GEMUSE QTc 425 ms GEMUSE P Wave [place] 60 degrees GEMUSE R [place] 11 degrees GEMUSE T [place] 17 degrees GEMUSE ECG Interpretation Normal sinus rhythm Possible Left atrial enlargement Borderline ECG When compared with ECG of 19-FEB-2025 14:26, No significant change was found Confirmed by Kwame HILTON JOHN ([id number]) on 06/22/2025 5:03:56 PM GEMUSE 06/12/2025 9:43 AM EDT 06/22/2025 5:03 PM EDT us Mile GARCIA ECG ORDERABLES Edited Result - Final GEMUSE from Last 3 Months Insurance MEDICARE [facility] Care Teams Control Systems Developer Relationship Specialty Start Date End Date Murphy Ramirez MD [address] [facility] [place] PCP - General Internal Medicine 04/27/21
== END 2025-09-01 11:56 | disposition home or self-care (01) ==
LOC: HO.HMGAL 11:56
PROVIDERS: PCP Internal Medicine; Visit Provider Registered Nurse Emergency
DX: J30.89 Other allergic rhinitis (principal)
CPT/HCPCS: 95117; 95165

== ENCOUNTER 2025-09-15 13:28 | Outpatient (AMB) | payer MEDICARE, SELFPAY ==
--- OUTSIDE RECORDS SUMMARY | 2025-09-15 18:10 | XMS_ITS | Clinical Summary ---
Author Organization [address] [place] [address] Address [address] [place] [address] Phone Care Team Providers Care Leak Operator Paraffin Plant Name Role Phone Murphy Ramirez MD Primary Care Provider [phone] Allergies Active Allergy Reactions Criticality Noted Date [...] current regimen. Asthma 03/08/2017 Allergic rhinitis 01/06/2017 Surgical History Surgery Date Site/Laterality Comments TOTAL KNEE ARTHROPLASTY PROCEDURE: HISTORICAL TOTAL KNEE REPLACE OTHER SURGICAL HISTORY PROCEDURE: HISTORY OTHER; COMMENT: Hammer toe operation CARDIOVERSION DONE ON 01/13/2025 AT [facility] W CR INDICATIONS:Atrial flutter ABLATION DONE ON 01/27/2025 AT [facility] W SR INDICATIONS:Atrial flutter. Medical History Medical [...] Screening 10/01/2022 Depression Screening 10/23/2024 COVID-19 Vaccine ( season) 2025 07/05/2024, 08/11/2023, 07/11/2022, Additional history [...] age to complete this topic Insurance MEDICARE [facility] Care Teams Leak Operator Paraffin Plant Relationship Specialty Start Date End Date Murphy [facility] [facility] - [facility] 04/27/21
== END 2025-09-15 13:28 | disposition home or self-care (01) ==
LOC: HO.HMGAL 13:28
PROVIDERS: PCP Internal Medicine; Visit Provider Registered Nurse Emergency
DX: J30.89 Other allergic rhinitis (principal)
CPT/HCPCS: 95117; 95165

== ENCOUNTER 2025-10-06 15:29 | Outpatient (AMB) | payer MEDICARE, SELFPAY ==
--- OUTSIDE RECORDS SUMMARY | 2025-10-06 21:56 | XMS_ITS | Data Portability ---
Author Organization [place] - [email or web address], [employer], [facility] Address [address] [place] [address] Care Team Providers Care Packaging Designer Name Role Phone PAULETTE DIOR Referring Provider AKILA COTE Primary Care Provider [phone] OCTAVIO MONTEMAYOR OTHER Assessment No assessment recorded. Plan of Treatment Reminders Order Date Submit Date Provider Last Modified By Organization Details Last Modified Time Details Appointments None recorded. Lab None recorded. Referral None recorded. Procedures None recorded. Surgeries None recorded. Imaging None recorded. Medication Orders prednisone 20 mg tablet 2016 017 INTERFACE [facility]/Pharmacy #[id number], [address] [place], [address], 7 16:15:00 Cheratussi n AC 10 mg-100 mg/5 mL oral liquid 2016 017 epapan [facility]/Pharmacy #[id number], [address] [place], [address], 7 16:15:10 Breo Ellipta 200 mcg-25 mcg/dose powder for inhalation 2016 017 INTERFACE [facility]/Pharmacy #[id number], [address] [place], [address], 7 16:22:52 Patient TargetsNo targets recorded. Patient Instructions Encounter Date Encounter Id Patient Instructions Last Modified By Organization Details Last Modified Time 12/04/2016 [id number] managing your allergies: care instructions ALEXANDRO Not available 12/06/2016 05:53:26 seasonal allergies: care instructions ALEXANDRO Not available 12/06/2016 05:53:26 bronchitis: care instructions ALEXANDRO Not available 12/06/2016 05:54:31 Reason for Referral None Reported. Procedures Surgical History Date Name Laterality Status Provider Name and Address Organization Details Recorded Time 10/23/2013 [facility] 15:44[facility]02 10/23/2011 Joint replacement , Knee completed [facility] 12/04/2016 15:43:47 Imaging Results None recorded. Procedure Notes None recorded. Medical Equipment None Reported. Allergies Allergen ID Allergen Name Allergen Category Reaction Reaction Severity Criticality Documentation Date Start Date Code Code System Note Provider Name and Address Organization Details Recorded Time 505331 clindamyc in Not available rash Not available Not available 12/04/2016 2582 RxNorm Geovanna Parker [facility] 7 15:35:59 409429 Celebrex medicatio n rash Not available Not available 12/04/2016 16897 7 RxNorm Geovanna Parker [facility] 7 15:36:15 118706 Substance with sulfonami de structure and antibacte rial mechanism of action (substanc e) medicatio n rash Not available Not available 12/04/2016 89166 8003 SNOMED Geovanna Parker [facility] 7 15:36:32 012163 acetamino phen / oxycodone medicatio n nausea Not available Not available 12/04/2016 70675 3 RxNorm Geovanna Parker [facility] 7 15:36:57 721995 doxycycli ne Not available nausea Not available Not available 12/04/2016 3640 RxNorm abdom inal pain Geovanna Parker [facility] 7 15:37:34 Medications Name Sig Start [...] temperature Heart rate Respiratory rate Oxygen saturation Systolic And Diastolic Provider Name and Address Organization Details Last Updated DateTime 7 32261.6 5 g 157.48 cm 34.3 kg/m2 98.7 [degF] 81 /min 16 /min 98 % 154/82 mm[Hg] Geovanna Parker [facility], [facility] 7 15:57:49 Social History Question Answer Notes LastModified by Organizat ion Details LastModified Time Tobacco Smoking Status Never Smoker [facility] [place] [facility] 12/04/2016 15:41:26 Alcohol Use No [email or web address] Information n ot available 12/04/2016 Marital Status [email or web address] Informatio n not available 12/04/2016 Sex: Unknown Functional Status Question Answer Note LastModified by Organization D etails LastModified Time What is your level of alcohol consumption? None [email or web address] Information not available 12/04/2016 What is your exercise level? Moderate [email or web address] Information not available 12/04/2016 Mental Status None recorded. Family History Relationship Description Onset Age of this Age Resolved Age Notes LastModified by Organization Details LastModified Time Mother [email or web address] Not available 12/04/2016 15:41:14 Father [email or web address] Not available 12/04/2016 15:41:14 Medical History Condition [...] Recorded Time influenza, unspecified formulation 06/23/2016 completed Geovanna shelton [place] [employer] [facility] 12/04/2016 15:39:21 pneumococcal, unspecified formulation 10/23/2010 completed LEO [place] - [facility], [facility] 12/04/2016 15:39:39 zoster live 10/23/2013 completed Geovanna shelton [place] [facility], [facility] 12/04/2016 15:39:59 tetanus toxoid, unspecified formulation 10/23/2015 completed Geovanna shelton [place] [facility], [facility] 12/04/2016 15:40:12 Past Encounters Encounter ID Performer Location Encounter Start Date Encounter Closed Date Diagnosis/Indication Diagnosis SNOMED-CT Code Diagnosis ICD10 Code Diagnosis IMO Codes Diagnosis Note [id number] Paulette Dior MD [facility] [address] [place] [id number] 12/04/2016 14:55:50 12/04/2016 16:33:31 Acute bronchitis 93214999 J20.9 she has multiple drug allergies and possibly allergic to pcnShe has recently completed a course of treatment of azithromyc inI would like to hold off additional antibiotic s at the moment 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 the review of started, adverse effects discussed, she 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 and pulmonolog ist Allergic r hinitis caused by pollen 76996605 J30.1 Health Concerns Section Related Observation LastModified by Organization Detai ls LastModified Time None Recorded Concern Status LastModified by Organization Details LastModified Time None Recorded Advance Directives Directive None Recorded Payers Insurance Date Sequence Insurance Name Policy Number Policy Goldman Covered Member ID Goldman Member ID Guarantor Name 12/04/2016 1 [place] Lesli Escobar [id number] Lesli Escobar 12/05/2016 2 [facility] [id number] Lesli Escobar [id number] Lesli Escobar Notes Date Note Type [...] noted in the HPI Paulette Dior MD [address] [address], [place], [address], [facility] - [facility], [facility] 12/04/2016 16:27:52 OBGyn Episode No OBEpisode recorded.
--- OUTSIDE RECORDS SUMMARY | 2025-10-06 21:56 | XMS_ITS | Clinical Summary ---
Author Organization [address] [place] [address] [address] [place] [address] Phone Care Team Providers Care Medical Driver Name Role Phone Murphy Ramirez MD Primary Care Provider [phone] Allergies Active Allergy Reactions Criticality Noted Date [...] Date Mild persistent asthma 12/29/2022 Atrial flutter 10/20/2021 Overview (10/28/2024): Last Assessment & Plan: In [...] toe operation CARDIOVERSION DONE ON 01/13/2025 AT [facility] W CR INDICATIONS:Atrial flutter [place] [facility] [place]S:Atrial flutter. [...] Orientation Straight 01/10/2025 8: 24 AM EDT Last Filed Vital Signs Vital Sign Reading [...] age to complete this topic Insurance MEDICARE [facility] Care Teams Medical Driver Relationship Specialty Start Date End Date Murphy Ramirez MD [address] [facility] - [facility] Internal Medicine 04/27/21
== END 2025-10-06 15:30 | disposition home or self-care (01) ==
LOC: HO.HMGAL 15:29
PROVIDERS: PCP Internal Medicine; Visit Provider Registered Nurse Emergency
DX: J30.89 Other allergic rhinitis (principal)
CPT/HCPCS: 95117; 95165